=== PATIENT | female | born 1945 | race Caucasian/White ===

== ENCOUNTER 2019-11-15 11:54 | Inpatient (IN) | payer OTHER ==
[2019-11-15 12:19] VITALS: BMI 23.6
--- NOTE | 2019-11-15 12:23 | PDOC ---
History of Present Illness - General Chief Complaint: Pain, Acute Stated Complaint: LT KNEE PAIN - History of Present Illness Initial Comments: 11/15/19 12:23 HPI: 74 y/o F with hx of CAD c/b [place] x5-6 s/p stents x4, COPD, HTN, HLD, OA s/p right knee replacement, and significant smoking history presenting with left knee pain. Pain has been present for 2 months and worsened after a fall. She has been to [facility] and had XRs performed and was told she had significant arthritis. Today she says the pain isnt changed but it feels worse. Knee pain is worse with ambulation and improved with tylenol and ice. Pain currently 9/10 but 5/10 after tylenol. She takes 325mg q3-4 hrs. Pain radiates distally and proximally. She also reports edema of her knee and distally which has worsened recently. She also reports that the knee pain radiates to her chest. Pain lasts about an hour and improves with tylenol. Pain occurs at rest and is worse with exertion. On further history, she reports this is her normal chest pain which she has been having for years and it is stable. It doesnt feel like her AL chest pain. Denies fever, chills, SOB, cough, abd pain, n/v, diaphoresis. PMHx: as noted above ROS: as noted SHx: significant tobacco use 1.5ppd; no alcohol use; no rec drugs Allergies: NKDA ROS: GENERAL/CONSTITUTIONAL: No fever or chills. HEAD, EYES, EARS, NOSE AND THROAT: No change in vision. No ear pain or discharge. No sore throat. CARDIOVASCULAR: +chest pain; no shortness of breath RESPIRATORY: No cough, wheezing, or hemoptysis. GASTROINTESTINAL: No nausea, vomiting, diarrhea or constipation. GENITOURINARY: No dysuria, frequency, or change in urination. MUSCULOSKELETAL: +L knee pain. SKIN: No rash NEUROLOGIC: No vertigo, loss of consciousness, or change in strength/sensation. ENDOCRINE: No increased thirst. No abnormal weight change HEMATOLOGIC/LYMPHATIC: No anemia, easy bleeding, or history of blood clots. ALLERGIC/IMMUNOLOGIC: No hives or skin allergy. PE: GENERAL: Awake, alert, and fully oriented, no acute distress HEAD: No signs of trauma, normocephalic, atraumatic EYES: EOMI, sclera anicteric, conjunctiva clear ENT: Auricles normal inspection, hearing grossly normal, nares patent, oropharynx clear without exudates. Moist mucosa NECK: Normal ROM, no lymphadenopathy LUNGS: No increased work of breathing, symmetrical chest rise, clear to auscultation bilaterally, no wheezes, crackles or rhonchi HEART: Regular rate and rhythm, normal S1 and S2, systolic ejection murmur, peripheral pulses 2+ and equal bilaterally. ABDOMEN: Soft, nondistended, nontender, normoactive bowel sounds. No guarding, no rebound. No masses. No CVAT MUSCULOSKELETAL: LLE with lateral knee effusion and distal 2+ pitting edema, pain on active and passive ROM, no laxity on posterior/anterior drawer test, n laxity on varus or valgus motion NEUROLOGICAL: Cranial nerves II through XII grossly intact. Normal speech, normal gait, no focal sensorimotor deficits SKIN: Warm, Dry, normal turgor, no rashes or lesions noted Past History - Past Medical History Allergies/Adverse Reactions: Allergies Allergy/AdvReac Type Severity Reaction Status Date / Time No Known Allergies Allergy Verified 11/15/19 12:19 Home Medications: Ambulatory Orders Aspirin [ASA -] 81 mg PO DAILY 03/30/14 Cardiac Disorders: Yes COPD: Yes HTN: Yes - Surgical History Cardiac Surgery: Yes (stents x 4) - Psycho Social/Smoking Cessation Hx Smoking Status: Yes Smoking History: Never smoked Years of Tobacco Use: 40 Have you smoked in the past 12 months: No Number of Cigarettes Smoked Daily: 80 Information on smoking cessation initiated: No 'Breaking Loose' booklet given: 01/06/14 Hx Alcohol Use: No Drug/Substance Use Hx: No Substance Use Type: None Hx Substance Use Treatment: No *Physical Exam - Vital Signs Last Vital Signs Temp Pulse Resp BP Pulse Ox 96.8 F L 83 16 150/77 100 11/15/19 11:54 11/15/19 11:54 11/15/19 11:54 11/15/19 11:54 11/15/19 11:54 Heart Score/ECG Review - History History: Moderately suspicious - Electrocardiogram EKG: Non specific repolarization disturbance - Age Age: >/= 65 - Risk Factors Risk Factors Heart Score: Yes Hx Hypertension, Yes Hx Diabetes, Yes Smoking History Based on the list above the patient has:: >/=3 risk factors or Hx atherosclerotic disease - Troponin Troponin: </= normal limit - Score Heart Score - Total: 6 ED Treatment Course - LABORATORY CBC & Chemistry Diagram: 11/15/19 14:15 11/15/19 14:15 Medical Decision Making - Medical Decision Making 11/15/19 14:13 74 y/o F with hx of CAD c/b [place] x5-6 s/p stents x4, COPD, HTN, HLD, OA s/p right knee replacement, and significant smoking history presenting with left knee pain and swelling worse on ambulation; also reporting chest pain. VSS, AF. PE with decreased ROM of LLE with edema and ttp. DDx includes OA, DVT, ACS, PNA, CHF exacerbation. Heart score 5/6 -cbc, cmp, cardiac profile, Mg, ekg, cxr, Duplex -ASA 11/15/19 16:47 US: left popliteal fossa cyst; no dvt BNP elevated, negative trops cxr: mild atelectasis in LLL; no acute process ekg: nsr, nl intervals, possible <1mm MO and T wave inversions in lateral leads however baseline is poor given heart score, will admit admitted to tele under dr wilson Discharge - Discharge Information Problems reviewed: Yes Clinical Impression/Diagnosis: Chest pain Qualifiers: Chest pain type: unspecified Qualified Code(s): R07.9 - Chest pain, unspecified Condition: Fair - Follow up/Referral - Patient Discharge Instructions - Post Discharge Activity
[2019-11-15] MEDS ORDERED: ASPIRIN 81 MG CHEWABLE TABLETS PO ONE (13:37)
[2019-11-15] MEDS ORDERED: ASPIRIN 81 MG CHEWABLE TABLETS ONE (14:22)
[2019-11-15 14:37] LABS: BASO % 0.8 % (0-2.0); EOS % 1.1 % (0-4.5); HEMATOCRIT 39.4 % (32.4-45.2); HEMOGLOBIN 13.2 GM/dL (10.7-15.3); LYMPH % 29.4 % (8-40); MCH 33.5 pg (25.7-33.7); MCHC 33.5 g/dl (32.0-36.0); MEAN CELL VOLUME 99.9 fl (80-96); MONO % 6.8 % (3.8-10.2); NEUT % 61.9 % (42.8-82.8); PLATELET COUNT 370 K/MM3 (134-434); RBC 3.94 M/mm3 (3.60-5.2); RDW 14.4 % (11.6-15.6); WHITE BLOOD COUNT 7.2 K/mm3 (4.0-10.0)
[2019-11-15 14:54] LABS: INR 0.89 (0.83-1.09); PROTHROMBIN TIME (PATIENT) 10.5 SEC (9.7-13.0)
[2019-11-15 14:57] LABS: ACTIVATED PTT 36.8 SECONDS (25.2-36.5)
[2019-11-15 14:59] LABS: ALBUMIN 3.8 g/dl (3.4-5.0); BILIRUBIN,TOTAL 0.5 mg/dL (0.2-1); BLOOD UREA NITROGEN 24.5 mg/dL (7-18); CALCIUM 9.6 mg/dL (8.5-10.1); CREATININE 1.2 mg/dL (0.55-1.3); POTASSIUM 4.9 mmol/L (3.5-5.1); TOT PROT 7.4 g/dl (6.4-8.2)
--- NOTE | 2019-11-15 15:05 | PDOC ---
Attending Attestation - Resident Resident Name: Ameya,Vikas - ED Attending Attestation I have performed the following: I have examined & evaluated the patient, The case was reviewed & discussed with the resident, I agree w/resident's findings & plan - HPI HPI: 11/15/19 15:01 74-year-old female with history of hypertension, CAD, severe left knee arthritis brought in by daughter for further evaluation of chronic left knee pain but worsening left chest pain. Patient reports fall few weeks ago, has been managed at [facility] ED and clinic over the last few weeks, treated with Tylenol but no orthopedics referral. X-ray reportedly confirmed severe arthritis, no additional imaging. Patient now presenting with request for a second opinion regarding her left knee pain, but more acutely has had acute on chronic left chest pain with exertion over the last 10 days. Patient states that when she tries to walk, she developed chest pressure without difficulty breathing, no lightheadedness or syncope. Chest pressure resolves with rest, reports not having cardiology follow-up recently, denies or does not recall last stress test or catheterization. Chest pain-free at this moment. - Physicial Exam PE: 11/15/19 15:02 Vitals as noted within normal limits Seated comfortably in wheelchair speaking full sentences Heart is regular with 2 out of 6 systolic ejection murmur, coarse breath sounds bilaterally in all lung morel Abdomen benign Left knee with small to moderate left knee effusion, no focal bony tenderness or deformity, limited range of motion secondary to pain, no warmth or erythema. Neurovascular intact. - Medical Decision Making 11/15/19 15:03 74-year-old female with worsening chronic left knee pain likely secondary to severe arthritis, no evidence of acute infectious process or vascular process. Patient also with known CAD and reportedly worsening exertional chest pain over the last 2 weeks, noncompliant with meds and lost to cardiology follow-up. Labs, EKG Chest x-ray, left knee x-ray Will need admission given elevated heart score and exertional chest pain Heart Score/ECG Review - History History: Moderately suspicious - Electrocardiogram EKG: Normal - Age Age: >/= 65 - Risk Factors Based on the list above the patient has:: >/=3 risk factors or Hx atherosclerotic disease - Troponin Troponin: </= normal limit - Score Heart Score - Total: 5 #1 ECG reviewed & interpreted by me at: 12:18 General ECG Interpretation: Sinus Rhythm, Normal Rate (84), Normal Intervals ( qtc 446), No acute ischemic changes (TWI V4-6) Compared to previous ECG there are: Changes noted (TWI new c/w last EKG from 2013)
--- NOTE | 2019-11-15 15:45 | EKG ---
Test Reason : Blood Pressure : / mmHG Vent. Rate : 084 BPM Atrial Rate : 084 BPM P-R Int : 136 ms QRS Dur : 080 ms QT Int : 378 ms P-R-T Axes : 051 046 011 degrees QTc Int : 446 ms NORMAL SINUS RHYTHM CANNOT RULE OUT ANTERIOR INFARCT , AGE UNDETERMINED ABNORMAL ECG WHEN COMPARED WITH ECG OF 30-MAR-2014 08:30, T WAVE AMPLITUDE HAS DECREASED IN ANTERIOR LEADS Confirmed by MD Andrew, Efren ([id number]) on 11/15/2019 3:45:20 PM Referred By: Confirmed By:Efren Morales MD
--- NOTE | 2019-11-15 16:00 | HP ---
CHIEF COMPLAINT: left knee and chest pain PCP: HISTORY OF PRESENT ILLNESS: Patient is a 74 year old female with history of hypertension, hyperlipidemia, coronary artery disease s/p [place] and 4 coronary stents (last one in 2010), COPD ( not on home oxygen) presents with complaint of left knee pain. Patient admits fall three weeks ago where she fell on her knee and backside. Patient states she has been seen at [facility] and was told her pain was due to arthritis, however was not sent with follow up or any medication. She admits chest pain that radiates from her knee, however ocaassionally has indipendent chest pain that is non radiating, and occurs with exertion as well as when resting. The pain is ocassionalloy associated with shortness of breath. Currently, patient denies any pain, shortness of breath, palpitations, abdominal pain, nausea, vomiting. ER course was notable for: (1) EKG reveals normal sinus rhythm at 84BPM. Initial troponin 0.02 (2) Duplex US left lower extremity (3) Recent Travel: denies PAST MEDICAL HISTORY: hypertension, hyperlipidemia, coronary artery disease s/ p [place], COPD PAST SURGICAL HISTORY: Coronary stenting, right knee replacement, right sided nephrectomy Family history: Patient unable to endorse history of cancer, cardiac disease, or diabetes in her family. Social History: Patient lives in apartment with her daughter. Formerly worked in animal intermediate. Patient is able to ambulate no more than one block with walker due to knee pain. Smoking: smokes 1.5PPD for the past 50 years Alcohol: denies alcohol consumption Drugs: denies illicit drug use Allergies No Known Allergies Allergy (Verified 11/15/19 12:19) HOME MEDICATIONS: Home Medications Medication Instructions Recorded Aspirin [ASA -] 81 mg PO DAILY 03/30/14 REVIEW OF SYSTEMS CONSTITUTIONAL: Absent: fever, chills, diaphoresis, generalized weakness, malaise, loss of appetite, weight change HEENT: Absent: rhinorrhea, nasal congestion, throat pain, throat swelling, difficulty swallowing, mouth swelling, ear pain, eye pain, visual changes CARDIOVASCULAR: Admits: chest pain. Absent: syncope, palpitations, irregular heart rate, lightheadedness, peripheral edema RESPIRATORY: Absent: cough, shortness of breath, dyspnea with exertion, orthopnea, wheezing, stridor, hemoptysis GASTROINTESTINAL: Absent: abdominal pain, abdominal distension, nausea, vomiting, diarrhea, constipation, melena, hematochezia GENITOURINARY: Absent: dysuria, frequency, urgency, hesitancy, hematuria, flank pain, genital pain MUSCULOSKELETAL: Admits: left knee pain. Absent: myalgia, back pain, neck pain SKIN: Absent: rash, itching, pallor HEMATOLOGIC/IMMUNOLOGIC: Absent: easy bleeding, easy bruising, lymphadenopathy, frequent infections ENDOCRINE: Absent: unexplained weight gain, unexplained weight loss, heat intolerance, cold intolerance NEUROLOGIC: Absent: headache, focal weakness or paresthesias, dizziness, unsteady gait, seizure, mental status changes, bladder or bowel incontinence PSYCHIATRIC: Absent: anxiety, depression, suicidal or homicidal ideation, hallucinations. PHYSICAL EXAMINATION Vital Signs - 24 hr 11/15/19 11:54 Temperature 96.8 F L Pulse Rate 83 Respiratory 16 Rate Blood Pressure 150/77 O2 Sat by Pulse 100 Oximetry (%) GENERAL: The patient is awake, alert, and fully oriented, in no acute distress. HEAD: Normocephalic, atraumatic. EYES: PERRL, extraocular movements intact, sclera anicteric, conjunctiva clear. ENT: Oropharynx clear, without erythema or exudates. Moist mucous membranes. NECK: Trachea midline, full range of motion. Supple without lymphadenopathy. LUNGS: Breath sounds equal, clear to auscultation bilaterally, no wheezes, no crackles. No accessory muscle use. HEART: Regular rate and rhythm, S1, S2 without murmur, rub or gallop. ABDOMEN: Soft, nondistended, nontender to light and deep palpation x4 quadrants , no rebound tenderness, no guarding. Normoactive bowel sounds x4 quadrants. no hepatosplenomegaly, no masses. EXTREMITIES: 2+ radial, dorsalis pedis pulses bilaterally. Left knee and lower extremit mildly edematous compared to right side. Unable to guage passive or active ROM as patient unable to bend her knee due to pain. Negative knee effusion, warmth, discharge. NEUROLOGICAL: Cranial nerves II through XII grossly intact. Normal speech. No gross focal deficits. PSYCH: Normal mood, normal affect upon my encounter. SKIN: Warm, dry. Laboratory Results - last 24 hr 11/15/19 11/15/19 11/15/19 14:15 14:15 14:15 WBC 7.2 RBC 3.94 Hgb 13.2 Hct 39.4 MCV 99.9 H MCH 33.5 MCHC 33.5 RDW 14.4 Plt Count 370 D MPV 8.0 D Absolute Neuts (auto) 4.4 Neutrophils % 61.9 Lymphocytes % 29.4 D Monocytes % 6.8 Eosinophils % 1.1 Basophils % 0.8 Nucleated RBC % 0 PT with INR 10.50 INR 0.89 PTT (Actin FS) 36.8 H Sodium Potassium Chloride Carbon Dioxide Anion Gap BUN Creatinine Est GFR (CKD-EPI)AfAm Est GFR (CKD-EPI)NonAf Random Glucose Calcium Magnesium Total Bilirubin AST ALT Alkaline Phosphatase Creatine Kinase 131 Troponin I < 0.02 Total Protein Albumin 11/15/19 11/15/19 14:15 14:15 WBC RBC Hgb Hct MCV MCH MCHC RDW Plt Count MPV Absolute Neuts (auto) Neutrophils % Lymphocytes % Monocytes % Eosinophils % Basophils % Nucleated RBC % PT with INR INR PTT (Actin FS) Sodium 134 L Potassium 4.9 Chloride 102 Carbon Dioxide 26 Anion Gap 6 L BUN 24.5 H Creatinine 1.2 Est GFR (CKD-EPI)AfAm 52.29 Est GFR (CKD-EPI)NonAf 45.11 Random Glucose 86 Calcium 9.6 Magnesium 2.5 H Total Bilirubin 0.5 AST 23 ALT 24 Alkaline Phosphatase 106 Creatine Kinase Troponin I Total Protein 7.4 Albumin 3.8 ASSESSMENT/PLAN: Patient is a 74 year old female with history of hypertension, hyperlipidemia, coronary artery disease s/p [place] and 4 coronary stents (last one in 2010), COPD ( not on home oxygen) presents with complaint of left knee pain. Atypical chest pain -Patient provides inconsistent story of chest pain that occasionally radiates from her knee. -EKG reveals normal sinus rhythm at 84BPM. Initial troponin 0.02. Will trend troponin. -Cardiac ECHO -F/U BNP -Telemetry monitoring -Chest pain less likely cardiac in etiology, however will consider cardiology evaluation, pending cardiac workup Left knee pain -Will obtain knee radiograph -Duplex left lower extremity to evaluate for DVT -Orthopedic surgery consult (Dr. Trimble) -Pain control with Acetaminophen 650mg PO Q6H PRN Coronary artery disease -Continue home Aspirin 81mg PO daily -Will need to reconcile medications; ?statin Hypertension -Patient states she does not take home antihypertensives. Will need to reconcile her medications (pharmacy currently closed) -Monitor vital signs closely. COPD -Currently not in exacerbation. -DuoNebs Q6 hours PRN for shortness of breath FEN -No IV fluids indicated -Follow BMP -Sodium controlled diet Prophylaxis -Heparin 5000units subq TID Disposition -Telemetry observation. Visit type - Emergency Visit Emergency Visit: Yes ED Registration Date: 11/15/19 Care time: The patient presented to the Emergency Department on the above date and was hospitalized for further evaluation of their emergent condition. - New Patient This patient is new to me today: Yes Date on this admission: 11/15/19 - Critical Care Critical Care patient: No ATTENDING PHYSICIAN STATEMENT I saw and evaluated the patient. I reviewed the resident's note and discussed the case with the resident. I agree with the resident's findings and plan as documented. SUBJECTIVE: OBJECTIVE: ASSESSMENT AND PLAN:
[2019-11-15 16:05] LABS: N-TERMINAL BNP 523.4 pg/ml (5-125)
--- NOTE | 2019-11-15 17:10 | PN ---
Teaching Attending Note Name of Resident: Conrad Mccray ATTENDING PHYSICIAN STATEMENT I saw and evaluated the patient. I reviewed the resident's note and discussed the case with the resident. I agree with the resident's findings and plan as documented. SUBJECTIVE: Patient is a 74 year old female with PMHx of HTN, HLD, CAD, s/p [place] with 4 stents (last one in 2010), COPD (not on home oxygen) presents with complaint of left knee pain. OBJECTIVE: Vital Signs Temperature 97.7 F 11/15/19 16:57 Pulse Rate 77 11/15/19 16:57 Respiratory Rate 16 11/15/19 16:57 Blood Pressure 116/63 11/15/19 16:57 O2 Sat by Pulse Oximetry (%) 97 11/15/19 16:57 GENERAL: The patient is awake, alert, and fully oriented, in no acute distress. HEAD: Normal with no signs of trauma. EYES: PERRL, extraocular movements intact, sclera anicteric, conjunctiva clear. ENT: Ears normal, oropharynx clear without exudates, moist mucous membranes. NECK: Trachea midline, full range of motion, supple. LUNGS: Breath sounds equal, clear to auscultation bilaterally, no wheezes, no crackles, no accessory muscle use. HEART: Regular rate and rhythm, S1, S2 without murmur, rub or gallop. ABDOMEN: Soft, nontender, nondistended, normoactive bowel sounds, no guarding, no rebound, no hepatosplenomegaly, no masses. EXTREMITIES: 2+ pulses, warm, well-perfused, edema of left ankle, unable to extend left knee. NEUROLOGICAL: Cranial nerves II through XII grossly intact. Normal speech, gait not observed. PSYCH: Normal mood, normal affect. SKIN: Warm, dry, normal turgor, no rashes or lesions noted CBCD WBC 7.2 K/mm3 (4.0-10.0) 11/15/19 14:15 RBC 3.94 M/mm3 (3.60-5.2) 11/15/19 14:15 Hgb 13.2 GM/dL (10.7-15.3) 11/15/19 14:15 Hct 39.4 % (32.4-45.2) 11/15/19 14:15 MCV 99.9 fl (80-96) H 11/15/19 14:15 MCHC 33.5 g/dl (32.0-36.0) 11/15/19 14:15 RDW 14.4 % (11.6-15.6) 11/15/19 14:15 Plt Count 370 K/MM3 (134-434) D 11/15/19 14:15 MPV 8.0 fl (7.5-11.1) D 11/15/19 14:15 CMP Sodium 134 mmol/L (136-145) L 11/15/19 14:15 Potassium 4.9 mmol/L (3.5-5.1) 11/15/19 14:15 Chloride 102 mmol/L (98-107) 11/15/19 14:15 Carbon Dioxide 26 mmol/L (21-32) 11/15/19 14:15 Anion Gap 6 MMOL/L (8-16) L 11/15/19 14:15 BUN 24.5 mg/dL (7-18) H 11/15/19 14:15 Creatinine 1.2 mg/dL (0.55-1.3) 11/15/19 14:15 Random Glucose 86 mg/dL (74-106) 11/15/19 14:15 Calcium 9.6 mg/dL (8.5-10.1) 11/15/19 14:15 Total Bilirubin 0.5 mg/dL (0.2-1) 11/15/19 14:15 AST 23 U/L (15-37) 11/15/19 14:15 ALT 24 U/L (13-61) 11/15/19 14:15 Alkaline Phosphatase 106 U/L (45-117) 11/15/19 14:15 Total Protein 7.4 g/dl (6.4-8.2) 11/15/19 14:15 Albumin 3.8 g/dl (3.4-5.0) 11/15/19 14:15 CARDIAC ENZYMES Creatine Kinase 131 U/L (26-192) 11/15/19 14:15 Troponin I < 0.02 ng/ml (0.00-0.05) 11/15/19 14:15 ASSESSMENT AND PLAN: Patient is a 74 year old female with history of hypertension, hyperlipidemia, coronary artery disease s/p [place] with 4 stents and 4 coronary stents (last one in 2011), COPD (not on home oxygen) presents with complaint of left knee pain. #Atypical chest pain with hx of CAD, continue home Aspirin 81mg PO daily, continue statin #Left knee pain; xray of the knee, Duplex to r/o LEs DVT, Orthopedic consult ( Dr. Trimble), follow xray of the knee # HTN : Will need to reconcile her medications (pharmacy currently closed) # Acute COPD: DuoNebs DVT Px: Heparin 5000units follow Ct of the back follow trops follow xray of the hip and the knee obs
[2019-11-15] MEDS: HEPARIN NA (PORCINE) 5,000 UNITS/ML 1ML VIAL SQ SCH (22:30)
[2019-11-16] MEDS: ACETAMINOPHEN 325 MG TABLET (FP) PO PRN ×2 (00:06→09:14)
[2019-11-16] MEDS: HEPARIN NA (PORCINE) 5,000 UNITS/ML 1ML VIAL SQ SCH ×4 (04:27→22:41)
[2019-11-16 07:10] LABS: HEMOGLOBIN 12.2 GM/dL (10.7-15.3); MCH 33.5 pg (25.7-33.7); MCHC 33.9 g/dl (32.0-36.0); MEAN CELL VOLUME 98.9 fl (80-96); MEAN PLT VOLUME 8.3 fl (7.5-11.1); PLATELET COUNT 341 K/MM3 (134-434); RBC 3.64 M/mm3 (3.60-5.2); RDW 14.3 % (11.6-15.6); WHITE BLOOD COUNT 5.4 K/mm3 (4.0-10.0)
[2019-11-16 07:33] LABS: ALBUMIN 3.4 g/dl (3.4-5.0); ALK PHOS 99 U/L (45-117); ANION GAP 8 MMOL/L (8-16); BILIRUBIN,TOTAL 0.7 mg/dL (0.2-1); BLOOD UREA NITROGEN 24.3 mg/dL (7-18); CALCIUM 9.4 mg/dL (8.5-10.1); CHLORIDE 103 mmol/L (98-107); CO2 25 mmol/L (21-32); CREATININE 1.1 mg/dL (0.55-1.3); GLUCOSE,RANDOM 82 mg/dL (74-106); MAGNESIUM 2.4 mg/dL (1.8-2.4); POTASSIUM 4.5 mmol/L (3.5-5.1); SGOT/AST 21 U/L (15-37); SGPT/ALT 21 U/L (13-61); SODIUM 136 mmol/L (136-145); TOT PROT 6.8 g/dl (6.4-8.2)
[2019-11-16] MEDS ORDERED: ASPIRIN 81 MG CHEWABLE TABLETS PO SCH (10:00)
[2019-11-16] MEDS ORDERED: methylPREDNISolone ACET (DEPO) 80 MG/1 ML VIAL IAR ONE (10:48)
--- NOTE | 2019-11-16 10:48 | CONSULT ---
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
--- NOTE | 2019-11-16 17:18 | PN ---
Progress Note (short form) - Note Progress Note: Subjective: pain in L knee. no back pain. limited movement in L leg due to knee and ankle pain . no abd pain or diarrhea . NO Cp or SOB. chest pain that happened 2 days ago, radiated from her L knee to her retrosternal area and under her L chest. happened at rest. Objective: Vital Signs: Last Vital Signs Temp Pulse Resp BP Pulse Ox 98.2 F 96 H 20 114/58 L 94 L 11/16/19 14:00 11/16/19 14:00 11/16/19 15:00 11/16/19 14:00 11/16/19 15:00 Laboratory Results - last 24 hr 11/15/19 11/16/19 11/16/19 21:00 06:00 06:00 WBC 5.4 RBC 3.64 Hgb 12.2 Hct 36.0 MCV 98.9 H MCH 33.5 MCHC 33.9 RDW 14.3 Plt Count 341 MPV 8.3 Sodium 136 Potassium 4.5 Chloride 103 Carbon Dioxide 25 Anion Gap 8 BUN 24.3 H Creatinine 1.1 Est GFR (CKD-EPI)AfAm 58.09 Est GFR (CKD-EPI)NonAf 50.12 Random Glucose 82 Calcium 9.4 Phosphorus 4.0 Magnesium 2.4 Total Bilirubin 0.7 AST 21 ALT 21 Alkaline Phosphatase 99 Creatine Kinase 124 Troponin I < 0.02 Total Protein 6.8 Albumin 3.4 Physical Exam: NAD CV: RRR, 3/6 Sm at base and apex. Lungs: CTAB Abd: soft, NT, ND , NL BS Ext : No edema or erythema. contracted L knee. tenderness to L knee and to L ankle. possible L suprapatellr bursa effusion Neuro of LE : LLE: hip flexion 4/5, knee flexion and extension 4/5,( all limited by pain) . decline moving L ankle due to pain. RLE: 5/5 Hip flexion . 5/5 knee lexion and extension, and ankle dorsiflexion and plantar flexion . decreased sensation over LLE compared to R. kne jerk 2+ on R. could not perform due to pain on L Imaging: CT of abd , L spine, US of LLE, Hips and Knee xrays reviewed. Assessment/Plan: 74 y/o lady with h/o hypertension, hyperlipidemia, CAD, s/p [place], s/p stents, COPD, and OA, who presented with CP and L knee pain. 1- CP: atypical . did not recur. EKG with J point elevation in anterior leads. trop neg x 2 out pt f/u - cont ASA - tele with no events. dc tele . transfer to Med Surg 2- L knee pain , with flexion contraction of Knee and Ankle - xrays reviewed. limited movement of L LE due to pain. - for steroid injection tomorrow 3- Abnormal stomach on CT scan. lack of po contrast limits evaluation . No abd pain and no N/V. - will get GI series 4- CT scan finding with L3-4 disk bulge . no urinary or fecal incontinence or retention . weakness in LLE is likely due to pain in knee and ankle. - she will need out pt MRI as she has sensation deficit in LLE - she was made aware of this 5- Absent R kidney on CT scan: will ask patient about h/o nephrectomy DVT PX : heparin Sq. PT pending . will confirm meds tomorrow when pharmacy is open Visit type - Emergency Visit Emergency Visit: Yes ED Registration Date: 11/15/19 Care time: The patient presented to the Emergency Department on the above date and was hospitalized for further evaluation of their emergent condition. - New Patient This patient is new to me today: Yes Date on this admission: 11/16/19 - Critical Care Critical Care patient: No
[2019-11-16] MEDS ORDERED: PT OWN MED DRAWER 7, Y5N ONE (17:37)
[2019-11-17] MEDS: HEPARIN NA (PORCINE) 5,000 UNITS/ML 1ML VIAL SQ SCH ×3 (06:11→21:09)
[2019-11-17] MEDS ORDERED: methylPREDNISolone ACET (DEPO) 80 MG/1 ML VIAL IAR ONE (10:00)
[2019-11-17] MEDS: ACETAMINOPHEN 325 MG TABLET (FP) PO PRN (13:27)
[2019-11-17] MEDS ORDERED: PT OWN MED DRAWER 7, Y5N ONE (13:59)
[2019-11-17] MEDS ORDERED: LIDOCAINE HCL 1%, 10 MG/ML (50 mL VIAL) SQ ONE (14:02)
--- NOTE | 2019-11-17 14:54 | PN ---
Progress Note (short form) - Note Progress Note: i administered a right knee Lido/Depo injection under sterile conditions. Will follow
[2019-11-17] MEDS: ASPIRIN 81 MG CHEWABLE TABLETS PO SCH (15:12)
--- NOTE | 2019-11-17 18:01 | PN ---
Physical Exam: SUBJECTIVE: Patient seen and examined CLAYTON Endorses Left knee pain, radiates to chest. Has trouble bending knee OBJECTIVE: Vital Signs Period Temp Pulse Resp BP Sys/Stern Pulse Ox Last 24 Hr 97.5 F-98.4 F 73-102 17-20 125-143/52-65 96-96 GENERAL: The patient is awake, alert, and fully oriented, in no acute distress. HEAD: NC/AT. No temporal wasting EYES: sclera anicteric, conjunctiva clear. ENT: Ears normal, nares patent, oropharynx clear without exudates, moist mucous membranes. NECK: Trachea midline, full range of motion, supple. No JVD LUNGS: Breath sounds equal, clear to auscultation bilaterally, no wheezes, no crackles, no accessory muscle use. HEART: Regular rate and rhythm, S1, S2 without murmur, rub or gallop. No TTP of anterior chest wall ABDOMEN: Soft, nontender, nondistended, normoactive bowel sounds, no guarding, no rebound. EXTREMITIES: 2+ pulses, warm, well-perfused, no edema. LLE w/ knee swelling, mild ballotable fluid lateral knee. Left knee w/o erythema or warmth. Right knee with surgical scar. Painful AROM of Left knee in flexion/extension NEUROLOGICAL: Normal speech, gait not observed. Laboratory Results - last 24 hr 11/16/19 06:00 Sodium 136 Potassium 4.5 Chloride 103 Carbon Dioxide 25 Anion Gap 8 BUN 24.3 H Creatinine 1.1 Est GFR (CKD-EPI)AfAm 58.09 Est GFR (CKD-EPI)NonAf 50.12 Random Glucose 82 Calcium 9.4 Phosphorus 4.0 Magnesium 2.4 Total Bilirubin 0.7 AST 21 ALT 21 Alkaline Phosphatase 99 Creatine Kinase 165 Creatine Kinase Index 3.6 CK-MB (CK-2) 6.1 H Troponin I < 0.02 Total Protein 6.8 Albumin 3.4 Active Medications Generic Name Dose Route Start Last Admin Trade Name Freq PRN Reason Stop Dose Admin Acetaminophen 650 mg 11/16/19 16:11 11/17/19 13:27 Tylenol - PO 650 mg Q6H PRN Administration PAIN LEVEL 1-5 Aspirin 81 mg 11/17/19 10:00 11/17/19 15:12 Asa - PO 81 mg DAILY HERMILO Administration Heparin Sodium (Porcine) 5,000 unit 11/16/19 16:30 11/17/19 15:11 Heparin - SQ 5,000 unit TID HERMILO Administration Ibuprofen 400 mg 11/17/19 08:11 Motrin - PO Q6H PRN PAIN LEVEL 6-10 ASSESSMENT/PLAN: 74 year old female with history of hypertension, hyperlipidemia, coronary artery disease s/p [place] and 4 coronary stents (last one in 2010), COPD (not on home oxygen) presents with complaint of left knee pain. Admitted for ACS r/o. Troponin were neg x3. No notable telemetry events. # Atypical chest pain --likely 2/2 MSK pain > CXR: scoliolsis > troponins neg x3 > BNP 523 - Telemetry monitoring --uneventful, dc'd #Left knee pain > LLE duplex(11/15/19): neg DVT, popliteal fossa cyst 2.5 x1.4 x1cm > XRay Left knee: no acute path -Orthopedic surgery consult (Dr. Trimble): - rec NSAID - s/p depomedrol+lido injection(11/17/19) -Pain mgmt: Acetaminophen 650mg PO, ibuprofen #chronic lower back pain > CT L-spine: L3-L4 disc buldging, mild spinal stenosis - MRI back as outpt # abnormal stomach findings on CT A/P > CT A/P: stomach appears abn vs retained food; hiatal hernia, granulomata vs calcifications of spleen, splenic artery aneursym 1.5cm, Left kidney parapelvic cysts, Right kidney is surgically absent - Upper GI series to evaluate stomach #Coronary artery disease -Continue home Aspirin 81mg PO daily -cw statin, ACEI #Hypertension - cw lisinopril, imdur COPD -Currently not in exacerbation. -DuoNebs Q6 hours PRN for shortness of breath #FEN -Sodium controlled diet -NPO at [place] #Prophylaxis -Heparin 5000units subq TID #Disposition - possible STR vs SNF vs home-VNS Visit type - Emergency Visit Emergency Visit: No - New Patient This patient is new to me today: No - Critical Care Critical Care patient: No ATTENDING PHYSICIAN STATEMENT I saw and evaluated the patient. I reviewed the resident's note and discussed the case with the resident. I agree with the resident's findings and plan as documented. SUBJECTIVE: OBJECTIVE: ASSESSMENT AND PLAN:
--- NOTE | 2019-11-17 18:04 | PN ---
Teaching Attending Note Name of Resident: Tae Uriostegui ATTENDING PHYSICIAN STATEMENT I saw and evaluated the patient. I reviewed the resident's note and discussed the case with the resident. I agree with the resident's findings and plan as documented. SUBJECTIVE: pain in L knee. no back pain, SOB , or fever . still has pain that radiates form her L knee to her chest OBJECTIVE: NAD CV: RRR, 3/6 Sm at base and apex. Lungs: CTAB Ext : No edema or erythema. contracted L knee. tenderness to L knee and to L ankle. possible L suprapatellr effusion Assessment/Plan: 74 y/o lady with h/o hypertension, hyperlipidemia,R nephrectomy ( unlcear reason ) CAD, s/p [place], s/p stents, COPD, and OA, who presented with CP and L knee pain. 1- CP: atypical . - cont ASA - f/u for possible stress as outpt 2- L knee pain , with flexion contraction of Knee and Ankle - steroid injection today - PT 3- Abnormal stomach on CT scan. - Gi series was canceled as patient ate breakfast . will be done tomorrow 4- CT scan finding with L3-4 disk bulge. MRI as out pt 5- R nephrectomy. confirmed with patient DVT PX : heparin Sq. She needs rehab. She agrees. SW notified
[2019-11-18] MEDS: ACETAMINOPHEN 325 MG TABLET (FP) PO PRN (02:38)
[2019-11-18] MEDS: HEPARIN NA (PORCINE) 5,000 UNITS/ML 1ML VIAL SQ SCH ×3 (06:09→21:15)
[2019-11-18] MEDS ORDERED: PT OWN MED DRAWER 7, Y5N ONE ×2 (10:26→11:14)
[2019-11-18] MEDS: BUDESONIDE/FORMETEROL FUMARATE 160/4.5 mcg INHALER IH SCH ×2 (10:37→21:15)
[2019-11-18] MEDS: ASPIRIN 81 MG CHEWABLE TABLETS PO SCH (10:37)
[2019-11-18] MEDS: LISINOPRIL 5 MG TABLET (FP) PO SCH (10:37)
--- NOTE | 2019-11-18 12:04 | ECHO ---
Name: LYNETTE MARTINO Exam:Adult Echocardiogram Study Date: 11/18/2019 10:10 AM Age: 74 yrs Reason For Study: Chest pain Height: 64 in Weight: 138 lb BSA: 1.7 m2 MMode/2D Measurements & Calculations IVSd: 1.00 cm Ao root diam: 2.6 cm LVIDd: 4.4 cm LA dimension: 2.8 cm LVIDs: 3.0 cm LVPWd: 0.88 cm EDV(Teich): 89.9 ml LVOT diam: 2.0 cm ESV(Teich): 34.6 ml LAV (MOD-bp): 39.6 ml Doppler Measurements & Calculations MV E max viktor: 77.6 cm/sec Ao V2 max: 153.4 cm/sec MV A max viktor: 93.6 cm/sec Ao max P.4 mmHg MV E/A: 0.83 AI P1/2t: 480.2 msec MV dec time: 0.23 sec HOOD(V,D): 2.0 cm2 AI max viktor: 391.8 cm/sec LV V1 max P.8 mmHg AI max P.4 mmHg LV V1 max: 97.0 cm/sec AI dec slope: 239.0 cm/sec2 PA V2 max: 92.3 cm/sec Med Peak E' Viktor: 6.4 cm/sec PA max P.4 mmHg Med E/e': 12.1 Lat Peak E' Viktor: 6.7 cm/sec Lat E/e': 11.5 Left Ventricle Left ventricular systolic function is normal. Ejection Fraction = 50-55%. The transmitral spectral Do ppler flow pattern is suggestive of impaired LV relaxation. Right Ventricle The right ventricle is normal in size and function. Atria Normal left and right atrial size and function. Mitral Valve There is mild mitral annular calcification. There is mild mitral valve thickening. There is no mitral valve stenosis. There is trace mitral regurgitation. Tricuspid Valve The tricuspid valve is normal in structure and function. There is mild tricuspid regurgitation. There was insufficient TR detected to calculate RV systolic pressure. Aortic Valve Moderate focal calcification on the aortic valve. In the parasternal long axis view, small mobile echodensity seen on the left ventricular surface of t he aortic valve likely representing an artifact; cannot r/o small vegetation, clinical correlation required. No hemodynamically significant valvular aortic stenosis. Mild aortic regurgitation. Pulmonic Valve The pulmonic valve is not well seen, but is grossly normal. There is no pulmonic valvular stenosis. Great Vessels The aortic root is normal size. Pericardium/Pleura There is no pericardial effusion. Interpretation Summary Left ventricular systolic function is normal. Ejection Fraction = 50-55%. There is mild mitral annular calcification. There is mild mitral valve thickening. There is mild tricuspid regurgitation. Moderate focal calcification on the aortic valve. In the parasternal long axis view, small mobile echodensity seen on the left ventricular surface of t he aortic valve likely representing an artifact; cannot r/o small vegetation, clinical correlation required. Mild aortic regurgitation. MD John Dill 11/18/2019 12:04 PM
--- NOTE | 2019-11-18 15:55 | CON.CARD ---
Consult Consult Specialty:: Cardiology Referred by:: Hospitalist Medicine Reason for Consultation:: Abnormal echocardiogram - History of Present Illness Chief Complaint: Knee and chest pain History of Present Illness: Patient is a 74 year old female with PMHx of HTN, HLD, CAD, s/p LA with 4 stents (last one in 2010), COPD (not on home oxygen) presents with complaint of left knee pain with limited movement in L leg due to knee and ankle pain after slip and fall, unable to weight bear, received lidocaine/steroid injection with some relief afterwards. She reports pain that radiates form her L knee to her chest, denies dyspnea, near or true syncope, palpitations, orthopnea, PND or LE edema. - History Source History Provided By: Patient Limitations to Obtaining History: No Limitations - Past Medical History Cardio/Vascular: Yes: CAD, HTN, Hyperlipdemia ...: No - Past Surgical History Past Surgical History: Yes: Appendectomy - Alcohol/Substance Use Hx Alcohol Use: No - Smoking History Smoking history: Current every day smoker Have you smoked in the past 12 months: Yes Aproximately how many cigarettes per day: 20 - Social History Usual Living Arrangement: Alone ADL: Independent Home Medications - Allergies Allergies/Adverse Reactions: Allergies Allergy/AdvReac Type Severity Reaction Status Date / Time No Known Allergies Allergy Verified 11/15/19 12:19 - Home Medications Home Medications: Ambulatory Orders Aspirin [ASA -] 81 mg PO DAILY 03/30/14 Atorvastatin Ca [Lipitor] 40 mg PO DAILY 11/17/19 Budesonide/Formeterol Fumarate [SYMBICORT 160/4.5mcg -] 2 inh IH DAILY 11/17/19 Isosorbide Mononitrate [Imdur -] 60 mg PO DAILY 11/17/19 Lisinopril [Zestril] 2.5 mg PO DAILY 11/17/19 Review of Systems - Review of Systems Musculoskeletal: reports: Joint Pain (Left knee pain) Vital Signs: Vital Signs Temperature 98.5 F 11/18/19 13:00 Pulse Rate 80 11/18/19 13:00 Respiratory Rate 18 11/18/19 13:00 Blood Pressure 102/44 L 11/18/19 13:00 O2 Sat by Pulse Oximetry (%) 96 11/18/19 07:00 Constitutional: Yes: No Distress, Calm Neck: Yes: Supple Respiratory: Yes: Regular, CTA Bilaterally Gastrointestinal: Yes: Normal Bowel Sounds, Soft Cardiovascular: Yes: Regular Rate and Rhythm JVD: No Carotid Bruit: No Heart Sounds: Yes: S1, S2 Murmur: Yes: Systolic Murmur, Grade 1 Musculoskeletal: Yes: Joint Stiffness Edema: No - Other Data Labs, Other Data: CBC, BMP 11/16/19 06:00 11/16/19 06:00 INR, PTT INR 0.89 (0.83-1.09) 11/15/19 14:15 NSR @ [address]-T changes Ejection Fraction %: LVEF > or = 40 % Imaging - Results Chest X-ray: Report Reviewed (NAD) Problem List - Problems (1) Atypical chest pain Code(s): R07.89 - OTHER CHEST PAIN (2) Flexion contracture of left knee Code(s): M24.562 - CONTRACTURE, LEFT KNEE (3) History of coronary artery stent placement Code(s): Z95.5 - PRESENCE OF CORONARY ANGIOPLASTY IMPLANT AND GRAFT (4) Coronary artery disease Code(s): I25.10 - ATHSCL HEART DISEASE OF [place] CORONARY ARTERY W/O ANG PCTRS Qualifiers: Coronary Disease-Associated Artery/Lesion type: [place] artery [place] vs. transplanted heart: [place] heart Associated angina: without angina Qualified Code(s): I25.10 - Atherosclerotic heart disease of [place] coronary artery without angina pectoris (5) Hypertension Code(s): I10 - ESSENTIAL (PRIMARY) HYPERTENSION Qualifiers: Hypertension type: essential hypertension Qualified Code(s): I10 - Essential (primary) hypertension (6) Hyperlipidemia Code(s): E78.5 - HYPERLIPIDEMIA, UNSPECIFIED Qualifiers: Hyperlipidemia type: pure hypercholesterolemia Qualified Code(s): E78.00 - Pure hypercholesterolemia, unspecified; E78.0 - Pure hypercholesterolemia (7) COPD (chronic obstructive pulmonary disease) Code(s): J44.9 - CHRONIC OBSTRUCTIVE PULMONARY DISEASE, UNSPECIFIED Assessment/Plan 11/18/2019 Echo: Normal LV size and fxn LVEF 50-55%, mild TR, mod focal calcification on aortic valve. In parasternal long axis view, small mobile echodensity seen on left ventricular surface of aortic valve likely representing artifact, can't rule out small vegetation, clinical correlation recommended, mild AR 1. Atypical chest pain 2. CAD s/p LA s/p stents 3. 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 HTN 5. Hyperlipidemia 6. Right nephrectomy 7. COPD 8. Artifact on echo 9. Abnormal stomach on CT scan and normal UGI series P:1. Reviewed echo and agree with artifact nature, no clinical symptoms of endocarditis 2. Post steroid/lidocaine injection, judicious NSAIDs and PT for left knee discomfort 3. Continus ASA 81 qd, Lipitor 40 qd, Zestril 2.5 qd, ideally should be on beta alexis (Toprol XL 25 qd) as hemodynamics and COPD tolerates 4. Lexiscan Myoview to assess severity of CAD as outpatient, patient usually seeks care at [facility] 5. Thank you for consultative opportunity
--- NOTE | 2019-11-18 16:19 | PN ---
Physical Exam: SUBJECTIVE: Patient seen and examined C[place]TON Endorses improvement in Left knee after depomedrol injection yesterday. Pain was 2/10, today now 7/10 but overall improved from admission OBJECTIVE: Vital Signs Period Temp Pulse Resp BP Sys/Stern Pulse Ox Last 24 Hr 97.7 F-98.5 F 68-85 18-20 102-139/44-61 96-96 GENERAL: The patient is awake, alert, and fully oriented, in no acute distress. HEAD: NC/AT. No temporal wasting EYES: sclera anicteric, conjunctiva clear. ENT: Ears normal, nares patent, oropharynx clear without exudates, moist mucous membranes. NECK: Trachea midline, full range of motion, supple. No JVD LUNGS: Breath sounds equal, clear to auscultation bilaterally, no wheezes, no crackles, no accessory muscle use. HEART: Regular rate and rhythm, S1, S2 without murmur, rub or gallop. No TTP of anterior chest wall ABDOMEN: Soft, nontender, nondistended, normoactive bowel sounds, no guarding, no rebound. EXTREMITIES: 2+ pulses, warm, well-perfused, no edema. LLE w/ knee swelling, mild ballotable fluid lateral knee. Small punctate wound from steroid injection , wound at distal lateral patella. Left knee w/o erythema or warmth. Right knee with surgical scar. Painful AROM of Left knee in flexion/extension NEUROLOGICAL: Normal speech, gait not observed. Active Medications Generic Name Dose Route Start Last Admin Trade Name Freq PRN Reason Stop Dose Admin Acetaminophen 650 mg 11/16/19 16:11 11/18/19 02:38 Tylenol - PO 650 mg Q6H PRN Administration PAIN LEVEL 1-5 Aspirin 81 mg 11/17/19 10:00 11/18/19 10:37 Asa - PO 81 mg DAILY HERMILO Administration Atorvastatin Calcium 40 mg 11/18/19 22:00 Lipitor - PO HS HERMILO Budesonide/Formoterol Fumarate 2 puff 11/18/19 10:00 11/18/19 10:37 Symbicort 160/4.5mcg - IH 2 inh BID HERMILO Administration Heparin Sodium (Porcine) 5,000 unit 11/16/19 16:30 11/18/19 14:09 Heparin - SQ 5,000 unit TID HERMILO Administration Ibuprofen 400 mg 11/17/19 08:11 Motrin - PO Q6H PRN PAIN LEVEL 6-10 Lisinopril 2.5 mg 11/18/19 10:00 11/18/19 10:37 Prinivil PO 2.5 mg DAILY HERMILO Administration ASSESSMENT/PLAN: 74 year old female with history of hypertension, hyperlipidemia, coronary artery disease s/p [place] and 4 coronary stents (last one in 2010), COPD (not on home oxygen) presents with complaint of left knee pain. Admitted for ACS r/o. Troponin were neg x3. No notable telemetry events. Echo showing questionable aortic valve vegetations. Patient w/o fever, leukocytosis throughout admission. CT A/P showed questionable stomach wall thickening(vs retained food). XRay upper GI was normal. Patient's hospital admission. # Atypical chest pain --likely 2/2 MSK pain --resolved > CXR: scoliolsis > troponins neg x3 > BNP 523 > echo(11/18/19): LVEF 50-55%, moderate focal calcification on aortic valve, small mobile echodensity seen on Left ventricular surface of the aortic valve likely representing an artifact; cannot r/o small vegetations - Telemetry monitoring --uneventful, dc'd # incidental Echo findings(artifact vs vegetations) > echo: L ventric echodensities - Cardio([facility]) consult: --pending #Left knee pain --improving > LLE duplex(11/15/19): neg DVT, popliteal fossa cyst 2.5 x1.4 x1cm > XRay Left knee: no acute path -Orthopedic surgery consult (Dr. 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 -DuoNebs Q6 hours PRN for shortness of breath #FEN -Sodium controlled diet -NPO at [place] #Prophylaxis -Heparin 5000units subq TID #Disposition - possible STR vs SNF vs home-VNS Visit type - Emergency Visit Emergency Visit: No - New Patient This patient is new to me today: No - Critical Care Critical Care patient: No ATTENDING PHYSICIAN STATEMENT I saw and evaluated the patient. I reviewed the resident's note and discussed the case with the resident. I agree with the resident's findings and plan as documented. SUBJECTIVE: OBJECTIVE: ASSESSMENT AND PLAN:
[2019-11-18] MEDS: IBUPROFEN 400 MG TABLET (FP) PO PRN (17:49)
--- NOTE | 2019-11-18 18:59 | PN ---
Teaching Attending Note Name of Resident: Billy Martin ATTENDING PHYSICIAN STATEMENT I saw and evaluated the patient. I reviewed the resident's note and discussed the case with the resident. I agree with the resident's findings and plan as documented. SUBJECTIVE: pain in L knee OBJECTIVE: NAD Ext : No edema or erythema. contracted L knee. tenderness to L knee and to L ankle. possible L suprapatellr effusion ( smaller today ) Assessment/Plan: 74 y/o lady with h/o hypertension, hyperlipidemia,R nephrectomy ( unlcear reason ) CAD, s/p CA, s/p stents, COPD, and OA, who presented with CP and L knee pain. 1- CP: atypical . - cont ASA , cont lisinopril - toprol added by Dr. Washington. - echo reviewed. questionable artifact vs vegetation. patient has no signs of endocarditis ( no bacteremia, fever , body aches or other signs ), which supports artifact nature. appreciate Dr. Washington input - f/u for stress as outpt 2- L knee pain, with flexion contraction of Knee and Ankle - steroid injection yesterday - PT 3- Abnormal stomach on CT scan. - Gi series did not show any significant pathology but the gastric duodenal bulb was not visualized. will have her f/u with GI closely as out pt for EGD . no urgency in performing test now, as she has no sx 4- CT scan finding with L3-4 disk bulge. MRI as out pt 5- R nephrectomy. DVT PX : heparin Sq. needs 3 mid nights in hospital fro rehab placement ASSESSMENT AND PLAN:
[2019-11-18] MEDS: ATORVASTATIN CA 40 MG TABLET (FP) PO SCH (21:15)
[2019-11-19] MEDS: IBUPROFEN 400 MG TABLET (FP) PO PRN ×2 (02:23→14:20)
[2019-11-19] MEDS: HEPARIN NA (PORCINE) 5,000 UNITS/ML 1ML VIAL SQ SCH ×3 (05:54→21:26)
[2019-11-19] MEDS ORDERED: PT OWN MED DRAWER 7, Y5N ONE (09:56)
[2019-11-19] MEDS: ASPIRIN 81 MG CHEWABLE TABLETS PO SCH (10:03)
[2019-11-19] MEDS: metoPROLOL SUCCINATE 25 MG TAB.SR.24H (FP) PO SCH (10:03)
[2019-11-19] MEDS: LISINOPRIL 5 MG TABLET (FP) PO SCH (10:03)
[2019-11-19] MEDS: ACETAMINOPHEN 325 MG TABLET (FP) PO PRN ×2 (10:03)
[2019-11-19] MEDS: BUDESONIDE/FORMETEROL FUMARATE 160/4.5 mcg INHALER IH SCH ×2 (10:06→21:27)
--- NOTE | 2019-11-19 12:30 | PN ---
Teaching Attending Note Name of Resident: Billy Martin ATTENDING PHYSICIAN STATEMENT I saw and evaluated the patient. I reviewed the resident's note and discussed the case with the resident. I agree with the resident's findings and plan as documented. SUBJECTIVE: No fever or chills. no SELLERS, L knee is better. Not ambulating much OBJECTIVE: NAD Lungs: CTAB Ext : No edema or erythema. contracted L knee. able to partially straighten the leg. Tenderness to L knee and to L ankle. tearful while moving her leg Assessment/Plan: 74 y/o lady with h/o hypertension, hyperlipidemia, R nephrectomy ( unlcear reason ) CAD, s/p [place], s/p stents, COPD, and OA, who presented with CP and L knee pain. 1- CP: atypical . - cont ASA , cont lisinopril - cont toprol - f/u for stress as outpt 2- L knee pain, with flexion contraction of Knee and Ankle - s/p steroid injection - PT 3- Abnormal stomach on CT scan. s/p GI series as well - will need a full GI w/u ,and possibly EGD as out pt. No sx. 4- CT scan finding with L3-4 disk bulge. MRI as out pt 5- R nephrectomy. DVT PX : heparin Sq. Needs rehab placement
[2019-11-19] MEDS: LIDOCAINE 5% TOPICAL PATCH TP SCH (16:19)
--- NOTE | 2019-11-19 16:38 | PN ---
Physical Exam: SUBJECTIVE: Patient seen and examined NAEON Left knee pain 4/10 today, improved overall. Has pain with extension of Left leg OBJECTIVE: Vital Signs Period Temp Pulse Resp BP Sys/Stern Pulse Ox Last 24 Hr 97.6 F-98.4 F 61-78 20-20 109-132/46-70 93 GENERAL: The patient is awake, alert, and fully oriented, in no acute distress. HEAD: NC/AT. No temporal wasting EYES: sclera anicteric, conjunctiva clear. ENT: Ears normal, nares patent, oropharynx clear without exudates, moist mucous membranes. NECK: Trachea midline, full range of motion, supple. No JVD LUNGS: Breath sounds equal, clear to auscultation bilaterally, no wheezes, no crackles, no accessory muscle use. HEART: Regular rate and rhythm, S1, S2 without murmur, rub or gallop. No TTP of anterior chest wall ABDOMEN: Soft, nontender, nondistended, normoactive bowel sounds, no guarding, no rebound. EXTREMITIES: 2+ pulses, warm, well-perfused, no edema. LLE w/ knee swelling, mild ballotable fluid lateral knee. Left knee edema is slightly improved from yesterday. Small punctate wound from steroid injection, wound at distal lateral patella. Left knee w/o erythema or warmth.Right knee with surgical scar. Painful AROM of Left knee in flexion/extension NEUROLOGICAL: Normal speech, gait not observed. Active Medications Generic Name Dose Route Start Last Admin Trade Name Freq PRN Reason Stop Dose Admin Acetaminophen 650 mg 11/16/19 16:11 11/19/19 10:03 Tylenol - PO 650 mg Q6H PRN Administration PAIN LEVEL 1-5 Aspirin 81 mg 11/17/19 10:00 11/19/19 10:03 Asa - PO 81 mg DAILY HERMILO Administration Atorvastatin Calcium 40 mg 11/18/19 22:00 11/18/19 21:15 Lipitor - PO 40 mg HS HERMILO Administration Budesonide/Formoterol Fumarate 2 puff 11/18/19 10:00 11/19/19 10:06 Symbicort 160/4.5mcg - IH 2 inh BID HERMILO Administration Heparin Sodium (Porcine) 5,000 unit 11/16/19 16:30 11/19/19 14:20 Heparin - SQ 5,000 unit TID HERMILO Administration Ibuprofen 400 mg 11/17/19 08:11 11/19/19 14:20 Motrin - PO 400 mg Q6H PRN Administration PAIN LEVEL 6-10 Lidocaine 1 patch 11/19/19 14:30 11/19/19 16:19 Lidoderm Patch - TP 1 patch DAILY HERMILO Administration Lisinopril 2.5 mg 11/18/19 10:00 11/19/19 10:03 Prinivil PO 2.5 mg DAILY HERMILO Administration Metoprolol Succinate 25 mg 11/19/19 10:00 11/19/19 10:03 Toprol Xl - PO 25 mg DAILY HERMILO Administration Miscellaneous 1 each 11/19/19 22:00 Lidoderm Patch Removal MC DAILY@2200 [facility] ASSESSMENT/PLAN: 74 year old female with history of hypertension, hyperlipidemia, coronary artery disease s/p NC and 4 coronary stents (last one in 2010), COPD (not on home oxygen) presents with complaint of left knee pain. Admitted for ACS r/o. Troponin were neg x3. No notable telemetry events. Echo showing questionable aortic valve vegetations. Patient w/o fever, leukocytosis throughout admission. CT A/P showed questionable stomach wall thickening(vs retained food). XRay upper GI was normal. Patient's hospital admission prolonged due to discharge placement. # Atypical chest pain --likely 2/2 MSK pain --resolved > CXR: scoliolsis > troponins neg x3 > BNP 523 > echo(11/18/19): LVEF 50-55%, moderate focal calcification on aortic valve, small mobile echodensity seen on Left ventricular surface of the aortic valve likely representing an artifact; cannot r/o small vegetations - Telemetry monitoring --uneventful, dc'd # incidental Echo findings(artifact vs vegetations) > echo: L ventric echodensities - Cardio([facility]) consult: --likely artifacts on echo --rec outpt Lexiscan myoview --started Toprol XL 25mg QD #Left knee pain --improving > LLE duplex(11/15/19): neg DVT, popliteal fossa cyst 2.5 x1.4 x1cm > XRay Left knee: no acute path -Orthopedic surgery consult (Dr. Trimble): - rec NSAID - s/p depomedrol+lido injection(11/17/19) -Pain mgmt: Acetaminophen PRN, ibuprofen PRN, lidoderm patch #chronic lower back pain > CT L-spine: L3-L4 disc buldging, mild spinal stenosis - MRI back as outpt # abnormal stomach findings on CT A/P > CT A/P: stomach appears abn vs retained food; hiatal hernia, granulomata vs calcifications of spleen, splenic artery aneursym 1.5cm, Left kidney parapelvic cysts, Right kidney is surgically absent > Upper GI series: normal stomach #Coronary artery disease -Continue home Aspirin 81mg PO daily -cw statin, ACEI -starting Toprol XL 25mg QD #Hypertension - cw lisinopril, imdur COPD -Currently not in exacerbation. -DuoNebs Q6 hours PRN for shortness of breath #FEN -Sodium controlled diet #Prophylaxis -Heparin 5000units subq TID #Disposition - possible STR vs SNF vs home-VNS Visit type - Emergency Visit Emergency Visit: No - New Patient This patient is new to me today: No - Critical Care Critical Care patient: No ATTENDING PHYSICIAN STATEMENT I saw and evaluated the patient. I reviewed the resident's note and discussed the case with the resident. I agree with the resident's findings and plan as documented. SUBJECTIVE: OBJECTIVE: ASSESSMENT AND PLAN:
--- NOTE | 2019-11-19 19:09 | PN ---
Progress Note (short form) - Note Progress Note: PAIN IN LEFT KNEE IMPROVED SLIGHTLY S/P INJECTION OF CORTISONE PLAN: CONTINUE PT, WBAT
[2019-11-19] MEDS: ATORVASTATIN CA 40 MG TABLET (FP) PO SCH (21:26)
[2019-11-20] MEDS: LIDOCAINE PATCH REMOVAL MC SCH (01:58)
[2019-11-20] MEDS: HEPARIN NA (PORCINE) 5,000 UNITS/ML 1ML VIAL SQ SCH ×3 (06:41→21:27)
[2019-11-20] MEDS: IBUPROFEN 400 MG TABLET (FP) PO PRN ×2 (06:48→23:11)
[2019-11-20] MEDS: LISINOPRIL 5 MG TABLET (FP) PO SCH (09:10)
[2019-11-20] MEDS: metoPROLOL SUCCINATE 25 MG TAB.SR.24H (FP) PO SCH (09:10)
[2019-11-20] MEDS ORDERED: PT OWN MED DRAWER 7, Y5N ONE (09:21)
[2019-11-20] MEDS: LIDOCAINE 5% TOPICAL PATCH TP SCH (09:24)
[2019-11-20] MEDS: ASPIRIN 81 MG CHEWABLE TABLETS PO SCH (09:24)
[2019-11-20] MEDS: BUDESONIDE/FORMETEROL FUMARATE 160/4.5 mcg INHALER IH SCH ×2 (09:24→23:17)
--- NOTE | 2019-11-20 16:36 | PN ---
Progress Note (short form) - Note Progress Note: Subjective: No fever or chills. No SELLERS. L knee pain is better. ambulation has slightly improved . She has no light headedness. NO PC . BP was low earlier with no sx but now improved with no intervention Objective: Vital Signs: Last Vital Signs Temp Pulse Resp BP Pulse Ox 98.1 F 65 20 125/53 L 94 L 11/20/19 09:00 11/20/19 12:31 11/20/19 12:31 11/20/19 12:31 11/20/19 09:00 Physical Exam: NAD Lungs: CTAB CV: RRR Ext : No edema or erythema. contracted L knee.. Tenderness to L knee. Assessment/Plan: 74 y/o lady with h/o hypertension, hyperlipidemia, R nephrectomy ( unlcear reason ) CAD, s/p CA, s/p stents, COPD, and OA, who presented with CP and L knee pain. 1- CP: atypical . - cont ASA , cont lisinopril - cont toprol - monitor bP closely - f/u for stress as outpt 2- L knee pain, with flexion contraction of Knee and Ankle. - s/p steroid injection. with slight improvement - PT 3- Abnormal stomach on CT scan. s/p GI series as well - will need a full GI w/u ,and possibly EGD as out pt. No sx. 4- CT scan finding with L3-4 disk bulge. MRI as out pt 5- R nephrectomy. DVT PX: heparin Sq. Rehab placement is pending Visit type - Emergency Visit Emergency Visit: Yes ED Registration Date: 11/17/19 Care time: The patient presented to the Emergency Department on the above date and was hospitalized for further evaluation of their emergent condition. - New Patient This patient is new to me today: No - Critical Care Critical Care patient: No
[2019-11-20] MEDS: ATORVASTATIN CA 40 MG TABLET (FP) PO SCH (21:27)
[2019-11-21] MEDS: LIDOCAINE PATCH REMOVAL MC SCH (00:24)
[2019-11-21] MEDS: ACETAMINOPHEN 325 MG TABLET (FP) PO PRN (04:38)
[2019-11-21] MEDS: HEPARIN NA (PORCINE) 5,000 UNITS/ML 1ML VIAL SQ SCH (06:00)
--- NOTE | 2019-11-21 09:24 | CONS ---
DATE OF CONSULTATION: 11/16/2019 ORTHOPEDIC CONSULTATION HISTORY OF PRESENT ILLNESS: The patient is a 74-year-old female complaining of left knee and ankle pain. It is difficult to get from her a specific history. She says she might have fallen about 6 months ago, and since then she has had pain inside of her knee. She does move along and has been walking on this using a walker, difficult to really get a great understanding of the chronicity for the acute nature of this condition. Negative history of gout or any other rheumatological condition. She does have a significant cardiac history and has had many stents. PHYSICAL EXAMINATION: Musculoskeletal: She has no swelling in the knee or in her ankle. She can actively flex from 20 degrees to 120 degrees but cannot extend her knee past 20 degrees. When I try to extend this, she is in a great deal of pain. She has no erythema, ecchymosis, swelling, excellent stability to varus/valgus anterior/posterior. Calves are soft, nontender. Skin is warm and of normal color. She has no tenderness over the medial and lateral joint line. Left ankle also is held in an everted and plantarflexed position. It is difficult to passively correct it to neutral. In doing so she complains of pain, but she has no erythema, ecchymosis. No point tenderness in any location in or around the ankle. She has 2+ pulses. Brisk capillary refill. Otherwise neurovascularly intact. She has good range of motion of her hips. The contralateral right side has no issues whatsoever. IMAGING: X-rays of the left knee and ankle show some DJD in the knee but otherwise no acute fractures, dislocations, lytic or blastic lesions. IMPRESSION: Significant flexion contracture of the left knee, equinus contracture of the left ankle. Difficult to know how the patient has been managing this period of time. It is also difficult to really grasp what exactly is going on with her. There did not appear to be any impediment to range of motion or logical in nature or just arthritic in nature. I will try getting her a lidocaine and Depo-Medrol injection in the knee. I have ordered the medications injected tomorrow. She needs physical therapy to get involved as well for both her knee and her ankle. She will be placed on and get a neurological evaluation as well. Will see if she gets lidocaine injection . Beverley MESSER/[id number]
[2019-11-21] MEDS ORDERED: PT OWN MED DRAWER 7, Y5N ONE (10:02)
[2019-11-21] MEDS: ASPIRIN 81 MG CHEWABLE TABLETS PO SCH (10:04)
[2019-11-21] MEDS: LISINOPRIL 5 MG TABLET (FP) PO SCH (10:05)
[2019-11-21] MEDS: metoPROLOL SUCCINATE 25 MG TAB.SR.24H (FP) PO SCH (10:06)
[2019-11-21] MEDS: LIDOCAINE 5% TOPICAL PATCH TP SCH (10:06)
[2019-11-21] MEDS: IBUPROFEN 400 MG TABLET (FP) PO PRN (10:06)
--- NOTE | 2019-11-21 10:13 | PN ---
Progress Note, Physician Chief Complaint: Events noted Complains of left knee pain after ambulating History of Present Illness: Patient was seen and examined. Awake and alert. Chart was reviewed Denies chest pain, SOB or palpitations - Current Medication List Current Medications: Active Medications Acetaminophen (Tylenol -) 650 mg PO Q6H PRN PRN Reason: PAIN LEVEL 1-5 Last Admin: 11/21/19 04:38 Dose: 650 mg Aspirin (Asa -) 81 mg PO DAILY [facility] Last Admin: 11/21/19 10:04 Dose: 81 mg Atorvastatin Calcium (Lipitor -) 40 mg PO HS [facility] Last Admin: 11/20/19 21:27 Dose: 40 mg Budesonide/Formoterol Fumarate (Symbicort 160/4.5mcg -) 2 puff IH BID [facility] Last Admin: 11/20/19 23:17 Dose: 2 puff Heparin Sodium (Porcine) (Heparin -) 5,000 unit SQ TID [facility] Last Admin: 11/21/19 06:00 Dose: 5,000 unit Ibuprofen (Motrin -) 400 mg PO Q6H PRN PRN Reason: PAIN LEVEL 6-10 Last Admin: 11/21/19 10:06 Dose: 400 mg Lidocaine (Lidoderm Patch -) 1 patch TP DAILY [facility] Last Admin: 11/21/19 10:06 Dose: 1 patch Lisinopril (Prinivil) 2.5 mg PO DAILY [facility] Last Admin: 11/21/19 10:05 Dose: Not Given Metoprolol Succinate (Toprol Xl -) 25 mg PO DAILY [facility] Last Admin: 11/21/19 10:06 Dose: Not Given Miscellaneous (Lidoderm Patch Removal) 1 each MC DAILY@2200 [facility] Last Admin: 11/21/19 00:24 Dose: 1 each - Objective Vital Signs: Vital Signs Temperature 98.1 F 11/21/19 06:03 Pulse Rate 66 11/21/19 06:03 Respiratory Rate 17 11/21/19 06:03 Blood Pressure 111/56 L 11/21/19 06:03 O2 Sat by Pulse Oximetry (%) 94 L 11/20/19 21:00 Neck: Yes: Supple Cardiovascular: Yes: Regular Rate and Rhythm, Murmur (Soft SM), S1, S2 Respiratory: Yes: CTA Bilaterally Gastrointestinal: Yes: Normal Bowel Sounds, Soft. No: Tenderness Edema: No Problem List - Problems (1) Atypical chest pain Code(s): R07.89 - OTHER CHEST PAIN (2) COPD (chronic obstructive pulmonary disease) Code(s): J44.9 - CHRONIC OBSTRUCTIVE PULMONARY DISEASE, UNSPECIFIED (3) Chest pain Code(s): R07.9 - CHEST PAIN, UNSPECIFIED Qualifiers: Chest pain type: unspecified Qualified Code(s): R07.9 - Chest pain, unspecified (4) Coronary artery disease Code(s): I25.10 - ATHSCL HEART DISEASE OF [place] CORONARY ARTERY W/O ANG PCTRS Qualifiers: Coronary Disease-Associated Artery/Lesion type: [place] artery [place] vs. transplanted heart: [place] heart Associated angina: without angina Qualified Code(s): I25.10 - Atherosclerotic heart disease of [place] coronary artery without angina pectoris (5) Flexion contracture of left knee Code(s): M24.562 - CONTRACTURE, LEFT KNEE (6) History of coronary artery stent placement Code(s): Z95.5 - PRESENCE OF CORONARY ANGIOPLASTY IMPLANT AND GRAFT (7) Hyperlipidemia Code(s): E78.5 - HYPERLIPIDEMIA, UNSPECIFIED Qualifiers: Hyperlipidemia type: pure hypercholesterolemia Qualified Code(s): E78.00 - Pure hypercholesterolemia, unspecified; E78.0 - Pure hypercholesterolemia (8) Hypertension Code(s): I10 - ESSENTIAL (PRIMARY) HYPERTENSION Qualifiers: Hypertension type: essential hypertension Qualified Code(s): I10 - Essential (primary) hypertension Assessment/Plan 1. Atypical chest pain 2. CAD s/p CO s/p stents 3. 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 HTN 5. Hyperlipidemia 6. Right nephrectomy 7. COPD PLAN: 1. PT for left knee discomfort and pain management 2. Continus ASA 81 mg QD, Lipitor 40 mg QHS and Zestril 2.5 mg QD. Continue Toprol XL 25 mg QD as tolerated 3. Nuclear MPI can be done as outpatient Mark Beal MD
[2019-11-21] MEDS: BUDESONIDE/FORMETEROL FUMARATE 160/4.5 mcg INHALER IH SCH (11:10)
[2019-11-21 11:13] VITALS: BP 127/71; PULSE 104; TEMP 97.6
--- NOTE | 2019-11-21 12:20 | PN ---
Teaching Attending Note Name of Resident: Billy Martin ATTENDING PHYSICIAN STATEMENT I saw and evaluated the patient. I reviewed the resident's note and discussed the case with the resident. I agree with the resident's findings and plan as documented. SUBJECTIVE: No fever or chills. L knee pain is better but she still has pain with ambulation . No CP or SOB OBJECTIVE: NAD Lungs: CTAB CV: RRR Ext : No edema or erythema. contracted L knee.. Tenderness to L knee. Assessment/Plan: 74 y/o lady with h/o hypertension, hyperlipidemia, R nephrectomy ( unlcear reason ) CAD, s/p AR, s/p stents, COPD, and OA, who presented with CP and L knee pain. 1- CP: atypical. - cont ASA, cont lisinopril - cont toprol - f/u for stress as outpt 2- L knee pain, with flexion contraction of Knee and Ankle. - s/p steroid injection. with slight improvement - cont PT at rehab 3- Abnormal stomach on CT scan. s/p GI series as well - will need a full GI w/u ,and possibly EGD as out pt. 4- CT scan finding with L3-4 disk bulge. MRI as out pt . neuro sx f/u with Dr. Whitten 5- R nephrectomy. dc to rehab. A bed is available today
--- NOTE | 2019-11-21 15:50 | DS ---
Physical Exam: SUBJECTIVE: Patient seen and examined OBJECTIVE: Vital Signs Period Temp Pulse Resp BP Sys/Stern Pulse Ox Last 24 Hr 97.5 F-98.3 F 58-104 15-20 99-134/45-72 94 PHYSICAL EXAM GENERAL: The patient is awake, alert, and fully oriented, in no acute distress. HEAD: NC/AT. No temporal wasting EYES: sclera anicteric, conjunctiva clear. ENT: Ears normal, nares patent, oropharynx clear without exudates, moist mucous membranes. NECK: Trachea midline, full range of motion, supple. No JVD LUNGS: Breath sounds equal, clear to auscultation bilaterally, no wheezes, no crackles, no accessory muscle use. HEART: Regular rate and rhythm, S1, S2 without murmur, rub or gallop. No TTP of anterior chest wall ABDOMEN: Soft, nontender, nondistended, normoactive bowel sounds, no guarding, no rebound. EXTREMITIES: 2+ pulses, warm, well-perfused, no edema. LLE w/ knee swelling, mild ballotable fluid lateral knee. Left knee edema is slightly improved from yesterday. Small punctate wound from steroid injection, wound at distal lateral patella. Left knee w/o erythema or warmth.Right knee with surgical scar. Painful AROM of Left knee in flexion/extension NEUROLOGICAL: Normal speech, gait not observed. LABS HOSPITAL COURSE: Date of Admission:11/17/19 Date of Discharge: 11/21/19 74 year old female with history of hypertension, hyperlipidemia, coronary artery disease s/p [place] and 4 coronary stents (last one in 2010), COPD (not on home oxygen) presents with complaint of left knee pain. Admitted for ACS r/o. Troponin were neg x3. No notable telemetry events. Echo showing questionable aortic valve vegetations. Patient w/o fever, leukocytosis throughout admission. Cardio([facility]) evaluated and determined that echo was likely artifact. Pt started on Toprol XL d/t ho CAD. CT A/P showed questionable stomach wall thickening(vs retained food). XRay upper GI was normal. LLE neg for DVT. Orthopedist(Jorge) injected medrol+lido into Left knee with some improvement of pain. Patient's hospital admission prolonged due to discharge placement. Minutes to complete discharge: 37 Discharge Summary Problems reviewed: Yes Reason For Visit: CHEST PAIN; R/O ACUTE MYOCARDIAL INFARCTION Condition: Improved - Instructions Diet, Activity, Other Instructions: You were evaluated in the hospital for severe Left knee pain that radiated up to your chest. You were admitted to for close ekg monitor but there were no notable findings. Your EKG and lab work were not suggestive of a cardiac issue. You were transferred out of the telemetry floor. A CT scan of your abdomen showed possible thickening of your stomach wall but it was unclear if it was due to artifact. A xray swallowing study did not show any abnormalities of your gastrointestinal system. Your Left knee pain improved slightly after getting a steroid injection to the knee. An echocardiogram was performed to evaluate the function of your heart. A informatica architect determined that there were no major abnormalities. You were started on a new heart medication Medications: - NEW Medications: -- ibuprofen 400mg, every 6 hours as needed for Left knee pain -- lidocaine[LIDODERM PATCH], applied to Left knee for 12hours on then 12hs off -- metoprolol succinate[TOPROL XL] 25mg, once daily - Resume your other home medications Please follow-up with the physicians below within 1 week: - Primary Care Physician: to discuss your recent hospitalization, getting a lower back MRI - Orthopedist(Jorge): to discuss your chronic Left knee pain - Deicer Repairer Pneumatic(Felix): to discuss getting a stress test - GI Dr. Aggarwal, as you might need EGD ( endoscopy ) to address the posssible abnormal CT of your stomach - Neurosurgeon , Dr. Carrington , to evaluate the disc bulge at level of L3-4. seen on CT scan . You will le MRI of the L spine Please seek immediate medical care if you experience: - severe chest pain, chest pressure, palpitations - severe worsening knee pain, severe redness Referrals: Joshua Whitten MD, FAANS [Staff Physician] - 2 Weeks Holden Patel MD [Staff Physician] - 1 Week Marilyn Aggarwal DO [Staff Physician] - 3 Weeks Martir Washington MD [Staff Physician] - 2 Weeks Yumiko Pryor [Primary Care Provider] - 1 Week Disposition: LONG TERM FACILITY - Home Medications Comprehensive Discharge Medication List: Ambulatory Orders Aspirin [ASA -] 81 mg PO DAILY 03/30/14 Atorvastatin Ca [Lipitor] 40 mg PO DAILY 11/17/19 Budesonide/Formeterol Fumarate [SYMBICORT 160/4.5mcg -] 2 inh IH DAILY 11/17/19 Isosorbide Mononitrate [Imdur -] 60 mg PO DAILY 11/17/19 Lisinopril [Zestril] 2.5 mg PO DAILY 11/17/19 Albuterol Sulfate Inhaler - [Ventolin HFA Inhaler -] 1 - 2 inh PO Q4H #1 inhaler 11/21/19 Ibuprofen [Motrin -] 400 mg PO Q6H PRN tablet 11/21/19 Lidocaine 5% Patch [Lidoderm -] 1 patch TP DAILY patch 11/21/19 Lidocaine Patch Removal [Lidoderm Patch Removal] 1 each MC DAILY@2200 each Metoprolol Succinate [Toprol XL -] 25 mg PO DAILY tab.sr.24h 11/21/19 This patient is new to me today: No Emergency Visit: No Critical Care patient: No - Discharge Referral Referred to [facility] Med P.C.: No ATTENDING PHYSICIAN STATEMENT I saw and evaluated the patient. I reviewed the resident's note and discussed the case with the resident. I agree with the resident's findings and plan as documented. SUBJECTIVE: OBJECTIVE: ASSESSMENT AND PLAN:
== END 2019-11-21 13:10 | DRG 556 ==
LOC: JER 11:54 → JERBED 14:56 → J4W 17:55 → J8W 11-16 13:51 → OBSVTOIN 11-17 15:46
PROVIDERS: ADMIT Internal Medicine; ATTEND Internal Medicine
PROC: 3E0U33Z Introduction of Anti-inflammatory into Joints, Percutaneous Approach (ICD-10-PCS; principal; 2019-11-17)
DX: M25.562 Pain in left knee (principal); M51.26 Other intervertebral disc displacement, lumbar region; R07.89 Other chest pain; M41.9 Scoliosis, unspecified; J44.9 Chronic obstructive pulmonary disease, unspecified; M48.061 Spinal stenosis, lumbar region without neurogenic claudication; I10 Essential (primary) hypertension; E78.5 Hyperlipidemia, unspecified; I25.10 Atherosclerotic heart disease of native coronary artery without angina pectoris; Z95.5 Presence of coronary angioplasty implant and graft; F17.210 Nicotine dependence, cigarettes, uncomplicated
CPT/HCPCS: 36415; 71046-TC-FY; 72131-TC; 73523-TC-FY; 73560-TC-LT-FY; 73610-TC-LT-FY; 73630-TC-LT; 74176-TC; 74247-TC-FY; 80053; 82550; 82553; 83735; 83880; 84100; 84484; 85025; 85027; 85610; 85730; 93005; 93010; 93306-TC; 93971-TC; 97116-GP; 97161-GP; 99282-25; G0378; J1644

== ENCOUNTER 2020-01-14 15:57 | Inpatient (IN) | payer OTHER ==
--- NOTE | 2020-01-14 16:40 | PDOC ---
Attending Attestation - Resident Resident Name: Holden Harris - ED Attending Attestation I have performed the following: I have examined & evaluated the patient, The case was reviewed & discussed with the resident, I agree w/resident's findings & plan
[2020-01-14] MEDS ORDERED: ACETAMINOPHEN 1000 MG/100 ML VIAL (NON FORMULARY) IVPB ONE (16:49)
[2020-01-14] MEDS ORDERED: ACETAMINOPHEN INJECTION 100 ML IVPB ONE (17:05)
--- NOTE | 2020-01-14 17:10 | PDOC ---
History of Present Illness - General Chief Complaint: Injury Stated Complaint: FELL (YESTERDAY) Time Seen by Provider: 01/14/20 16:25 - History of Present Illness Initial Comments: 74F PMH HTN, HLD, CAD s/p 4 stents on ASA, COPD presenting 1 day after fall in the bathroom w/ head strike but w/o LOC; not on AC. Pt was going to sit on the toilet, missed the toilet, and fell into the bathtub; states she hit all over. Pain of her left forearm, denies head, neck, back, hip, or leg pain. Denies numbness, tingling, weakness. Denies preceeding chest pain, sob, blurry vision, dizziness. Denies f/c. Pt was evaluated at [facility] after incident and films of the left arm; told "nothing was wrong" and discharged. Pt and daughter provide poor / unclear hx regarding ED course at [facility]. C/o continued left arm pain. Pt also endorsing recent frequent nonradiating substernal chest pain starting at rest and lasting for 15-20mins; attributes to recent stress 2/2 being undomiciled. Pt currently moving around hotels w/ daughter. NKDA. PCP [facility] Past History - Past Medical History Allergies/Adverse Reactions: Allergies Allergy/AdvReac Type Severity Reaction Status Date / Time No Known Allergies Allergy Verified 01/15/20 19:19 Home Medications: Ambulatory Orders Unobtainable 01/15/20 Cardiac Disorders: Yes COPD: Yes Diabetes: Yes HTN: Yes - Surgical History Cardiac Surgery: Yes (stents x 4) - Psycho Social/Smoking Cessation Hx Smoking Status: Yes Smoking History: Current every day smoker Years of Tobacco Use: 40 Have you smoked in the past 12 months: Yes Number of Cigarettes Smoked Daily: 20 Information on smoking cessation initiated: Yes 'Breaking Loose' booklet given: 11/15/19 Hx Alcohol Use: No Drug/Substance Use Hx: No Substance Use Type: None Hx Substance Use Treatment: No Review of Systems - Review of Systems Able to Perform ROS?: Yes Comments:: CONSTITUTIONAL: Denies F / C HEENT: Denies headache, neck pain. RESP: Denies SOB CARD: endorses chest pain GI: Denies N / V / D. endorses chronic issues w/ constipation. : Denies dysuria SKIN: Denies rashes NEURO: Denies numbness, tingling, weakness MSK: endorses left arm pain *Physical Exam - Vital Signs Last Vital Signs Temp Pulse Resp BP Pulse Ox 97.3 F L 105 H 18 122/77 98 01/14/20 15:57 01/14/20 15:57 01/14/20 15:57 01/14/20 15:57 01/14/20 15:57 - Physical Exam GEN: Well appearing, NAD, comfortable. AAOx3. HEENT: Light green bruising over the left forehead o/w no obvious deformities. CN II-XII intact, EOMI, PERRL. No facial asymmetry. Normal voice. Supple neck w / FROM w/o TTP. CV: S1/S2, RRR, no m/r/g LUNG: CTAB, no wheezes, crackles, rales, rhonchi. GI: Soft, ndnt, +BS, no guarding, no rebound. SKIN: Ecchymosis of the b/l forearms. Warm, dry, no rashes appreciated. PSYCH: Normal mood and affect. NEURO: Moving all extremities well. strength 5/5 RUE; 4/5 LUE lmited 2/2 pain. 5 /5 LE strength b/l. Sensation symmetric and intact throughout. BACK: No obvious deformities, no step offs, no midline TTP. There is no pelvic instability. No signs of trauma. MSK: +TTP left mid ulna w/o obvious deformities w/ overlying ecchymosis, pulses present, sensation intact. ROM reduced 2/2 pain on left wrist. FROM of L elbow and L shoulder. No TTP, FROM of RUE or b/l LEs. 2+ distal pulses. No LE edema. No obvious deformities of all extremities. Procedures - Splinting Splint Location: Left: Forearm Pre-Proc Neuro Vasc Exam: normal Hand-Made Type: orthoglass Splint Type: Yes: Allie Zee Post-Proc Neuro Vasc Exam: normal Brandon Bandage: 4" Sling: No Complications: No Progress: 01/14/20 20:40 4" orthoglass molded to patient's LUE. Kerlex and webrol applied as base layer; neurovascularly intact Sugar Tong splint applied with hand in neutral position subsequently BRANDON bandaged. Post splint - there was no pain, numbness, or tingling. +pulses. Symmetric sensation and moving all fingers. Pt tolerated procedure well. Heart Score/ECG Review - History History: Slightly suspicious - Electrocardiogram EKG: Non specific repolarization disturbance - Age Age: >/= 65 - Risk Factors Risk Factors Heart Score: Yes Hx Hypercholesterolemia, Yes Hx Hypertension, Yes Smoking History Based on the list above the patient has:: >/=3 risk factors or Hx atherosclerotic disease - Troponin Troponin: </= normal limit - Score Heart Score - Total: 5 ED Treatment Course - LABORATORY CBC & Chemistry Diagram: 01/16/20 07:18 01/16/20 07:18 - RADIOLOGY Radiology Studies Ordered: Category Date Time Status CERVICAL SPINE CT W/O CONTR [CT] Stat CT Scan 01/14/20 17:[address] WITHOUT CONTRAST [CT] Stat CT Scan 01/14/20 17:06 Ordered CHEST X-RAY PORTABLE* [RAD] Stat Radiology 01/14/20 17:06 Ordered WRIST-LEFT [RAD] Stat Radiology 01/14/20 17:06 Ordered Medical Decision Making - Medical Decision Making 01/14/20 17:10 74F PMH HTN, HLD, CAD s/p 4 stents on ASA, COPD presenting 1 day after fall w/ head strike w/o LOC, not on AC. Was chris at [facility]. +TTP of the left mid ulna ; also endorsing frequent chest pain. DDx - syncope?; arrhythmia, lytes, anemia. eval for traumatic fractures of head , neck, left arm. - CBC, CMP, Cardiac, Coags - CT - XRs - EKG - tylenol IV Spoke with [facility] ED and confirmed that patient received CT head, neck, and XR of the left arm; reads not provided. 01/14/20 17:53 ED read of Left Wrist XR: non-comminuted, medially displaced distal ulnar fracture on PA view. f/u official read. - will further characterize fracture w/ forearm and elbow films 01/14/20 18:22 EKG 1812 HR 87 OR 140 QRS 84 QTc 454; NSR, PVC, TWI III and V1 present in prior EKG on 11/15/19 01/14/20 18:41 Elbow and forearm films reviewed by ED team - distal ulnar fracture. f/u official read. Will apply sugar tong splint. 01/14/20 18:53 labs reviewed Keflex for UTI f/u CT splint admit tele 01/14/20 20:39 sugar tong splint applied to the LUE; see procedure note. 01/14/20 20:51 IOC - CT HEAD: FINDINGS: No intracranial hemorrhage midline shift, mass or skull fracture. Nix white matter demarcation intact. 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 Ventricles, sulci and basal cisterns are within normal for age. Visualized paranasal sinuses and mastoid air cells are clear. Orbital structures are intact. IMPRESSION: No acute intracranial findings. THIS DOCUMENT HAS BEEN ELECTRONICALLY SIGNED Mone Morales D.O. 01/14/20 20:55 IOC - CT NECK FINDINGS: No acute fracture, subluxation, jumped facet, or soft tissue injury. Cervical alignment normal. No spinal stenosis or large disc herniation. Prevertebral and paraspinal soft tissues are normal. Occipital condyles, C1 ring and odontoid are intact. No pneumothorax identified in the lung apices. IMPRESSION: No acute fracture or subluxation of the cervical spine. THIS DOCUMENT HAS BEEN ELECTRONICALLY SIGNED Mone Morales D.O. Discharge - Discharge Information Problems reviewed: Yes Clinical Impression/Diagnosis: Chest pain at rest UTI (urinary tract infection) Qualifiers: Urinary tract infection type: site unspecified Hematuria presence: without hematuria Qualified Code(s): N39.0 - Urinary tract infection, site not specified Ulna distal fracture Qualifiers: Encounter type: initial encounter Fracture type: closed Fracture morphology: unspecified fracture morphology Laterality: left Qualified Code(s): S52.602A - Unspecified fracture of lower end of left ulna, initial encounter for closed fracture Condition: Stable - Follow up/Referral - Patient Discharge Instructions - Post Discharge Activity
[2020-01-14 17:44] LABS: BASO % 0.7 % (0-2.0); EOS % 1.4 % (0-4.5); HEMATOCRIT 37.5 % (32.4-45.2); HEMOGLOBIN 12.3 GM/dL (10.7-15.3); LYMPH % 22.5 % (8-40); MCH 33.3 pg (25.7-33.7); MCHC 32.7 g/dl (32.0-36.0); MEAN CELL VOLUME 101.8 fl (80-96); MEAN PLT VOLUME 8.8 fl (7.5-11.1); MONO % 8.7 % (3.8-10.2); NEUT % 66.7 % (42.8-82.8); PLATELET COUNT 302 K/MM3 (134-434); RBC 3.69 M/mm3 (3.60-5.2); RDW 14.1 % (11.6-15.6); WHITE BLOOD COUNT 7.2 K/mm3 (4.0-10.0)
[2020-01-14 17:57] LABS: INR 0.88 (0.83-1.09); PROTHROMBIN TIME (PATIENT) 10.4 SEC (9.7-13.0)
[2020-01-14 17:59] LABS: ACTIVATED PTT 20.2 SECONDS (25.2-36.5)
[2020-01-14 18:17] LABS: ALBUMIN 3.4 g/dl (3.4-5.0); ALK PHOS 90 U/L (45-117); ANION GAP 7 MMOL/L (8-16); BILIRUBIN,TOTAL 0.7 mg/dL (0.2-1); BLOOD UREA NITROGEN 14.1 mg/dL (7-18); CALCIUM 9.3 mg/dL (8.5-10.1); CHLORIDE 108 mmol/L (98-107); CO2 25 mmol/L (21-32); CREATININE 1.1 mg/dL (0.55-1.3); GLUCOSE,RANDOM 95 mg/dL (74-106); POTASSIUM 4.4 mmol/L (3.5-5.1); SGOT/AST 22 U/L (15-37); SGPT/ALT 17 U/L (13-61); SODIUM 140 mmol/L (136-145); TOT PROT 6.8 g/dl (6.4-8.2)
[2020-01-14 18:23] LABS: EPI CELLS 15.4 /HPF (0-5/HPF); HYALINE CASTS 30 /lpf (0-8); URINE APPEARANCE CLOUDY; URINE BACTERIA 80.4 /hpf (NEGATIVE); URINE BILIRUBIN NEGATIVE (NEGATIVE); URINE COLOR DK YELLOW; URINE GLUCOSE (UA) NEGATIVE (NEGATIVE); URINE KETONE NEGATIVE (NEGATIVE); URINE LEUK ESTERASE 2+ (NEGATIVE); URINE NITRITE NEGATIVE (NEGATIVE); URINE PROTEIN NEGATIVE (NEGATIVE); URINE RBC 9 /hpf (0-4); URINE WBC 107 /hpf (0-5)
[2020-01-14] MEDS ORDERED: CEPHALEXIN MONOHYDRATE 500 MG CAPSULE (UD) PO ONE (18:50)
--- NOTE | 2020-01-14 19:31 | PDOC ---
Documentation entered by Sabine Washington SCRIBE, acting as scribe for Luly West DO. Luly West DO: This documentation has been prepared by the ryan, Sabine Washington SCRIBE, under my direction and personally reviewed by me in its entirety. I confirm that the documentation accurately reflects all work , treatment, procedures, and medical decision making performed by me. Attending Attestation - Resident Resident Name: Holden Harris - ED Attending Attestation I have performed the following: I have examined & evaluated the patient, The case was reviewed & discussed with the resident, I agree w/resident's findings & plan - HPI HPI: 01/14/20 18:13 The patient is a 74-year-old female with a past medical history significant for CAD s/p stenting who presents to the emergency department with intermittent chest pain for several days and s/p a recent fall while trying to get up from the toilet. The patient was seen at another facility, however, the patient is a poor historian regarding the details of the workup. The patient is also complaining of left wrist pain. - Physicial Exam PE: 01/14/20 18:16 Agree with the resident - Medical Decision Making 01/14/20 19:25 74-year-old female with history of coronary artery disease status post fall complaining of left upper extremity pain, patient states she also hit her head X-rays of the upper extremity are consistent with a displaced ulnar fracture, with no extremity neurovascular compromise We will splint Plan on admission medically for chest pain with significant cardiac history Of note patient has inconsistent living conditions and has been going from hotel to hotel, outpatient follow-up has been difficult
[2020-01-14] MEDS ORDERED: ALBUTEROL SO4 HFA INHALER IH SCH (23:45)
[2020-01-14] MEDS ORDERED: CEPHALEXIN MONOHYDRATE 500 MG CAPSULE (UD) ONE (23:53)
[2020-01-15] MEDS ORDERED: ALBUTEROL SO4 0.083% IH SOL 2.5 MG/3 ML VIAL.NEB. NEB ONE (00:23)
[2020-01-15] MEDS ORDERED: ALBUTEROL SO4 HFA INHALER IH PRN (01:17)
[2020-01-15] MEDS ORDERED: IBUPROFEN 400 MG TABLET (FP) PO PRN (02:46)
--- NOTE | 2020-01-15 02:51 | PN ---
Teaching Attending Note Name of Resident: Tae Lee ATTENDING PHYSICIAN STATEMENT I saw and evaluated the patient. I reviewed the resident's note and discussed the case with the resident. I agree with the resident's findings and plan as documented. SUBJECTIVE: 74 woman w/ PMH HTN, HLD, CAD s/p 4 stents on ASA, COPD presenting 1 day after a fall after she missed the toilet and when she was attempting to sit on it, no loc, there was trauma to head and left upper extremity. Patient was seen at [facility] and was discharged home. Returns because of pain in her left hand. Complained of some left wrist pain in the emergency room here and x-ray showed distal ulnar diaphyseal fracture. Patient also complained of some chest pain which has been intermittent for a long period of time. Patient is an extremely poor historian and history is mainly obtained from the EMR. OBJECTIVE: Last Vital Signs Temp Pulse Resp BP Pulse Ox 97.6 F 88 19 118/62 97 01/14/20 23:09 01/14/20 23:09 01/14/20 23:09 01/14/20 23:09 01/14/20 23:09 On physical exam patient is a frail, elderly lady in no acute distress. Head is atraumatic, no ecchymosis noted on skin. Pupils are reactive bilaterally, sclera nonicteric. Left upper extremity was in a cast. Fingers were warm to touch with good sensation. Chest was clear to auscultation bilaterally. Heart sounds were normal, S1, S2 regular rate and rhythm. Abdomen was soft, nontender. Lower extremities were nontender to palpation. Abnormal Lab Results 01/14/20 01/14/20 01/14/20 17:27 17:27 17:27 MCV 101.8 H PTT (Actin FS) 20.2 L Chloride 108 H Anion Gap 7 L CK-MB (CK-2) 6.0 H Ur Leukocyte Esterase 01/14/20 18:00 MCV PTT (Actin FS) Chloride Anion Gap CK-MB (CK-2) Ur Leukocyte Esterase 2+ H ekg- no ischemic changes CT of head was performed and showed no intracranial hemorrhage, mass or skull fracture. No acute intracranial findings. CT of the neck showed no acute fracture or subluxation of the cervical spine. Chest x-ray showed no evidence of acute pulmonary disease or thoracic injury. Left wrist x-ray showed a distal ulnar diaphyseal fracture. Left elbow x-ray no evidence of fracture or subluxation or effusion ASSESSMENT AND PLAN: #Chest pain-atypical tele-observation trend troponin echo cardiology consult NGL prn sublingual #Left ulnar Distal fracture ibuprofen prn for pain maintain left arm splint orthopedics consult- Dr. Florentino #Hypertension Continue with lisinopril, Toprol 25 mg p.o. daily Isosorbide #Dyslipidemiacontinue with Lipitor 40 mg daily #COPDno exacerbation noted Continue with Symbicort Albuterol PRN Avoidance of tobacco Would hold aspirin at this time in case of potential orthopedic surgery DVT prophylaxisSCDs
[2020-01-15] MEDS ORDERED: NITROGLYCERIN SUBLINGUAL 1/200 0.3 MG BTL SL PRN (02:58)
--- NOTE | 2020-01-15 03:09 | HP ---
CHIEF COMPLAINT: PCP: [facility] HISTORY OF PRESENT ILLNESS: Pt is a 74 y/o F with PMH HTN, HLD, CAD s/p 4 stents, COPD who presented to ED with complaint of L forearm pain since falling 2 days ago and L chest pain intermittently over the last 10 years. In ED, pt was found to have left distal ulnar fracture, which was splinted. She likely developed the fracture when she fell 2 days ago. Pt states she went to use the restroom and as she was going to sit on the toilet, she missed and fell back into the bathtub hitting he head in the process. Denies LOC. Not on blood thinners. At the time of the interview, pt stated she felt ok. She complained of L stabbing chest pain worse with deep breath and with pressing on the chest. Pain has been present on and off for 10 years. Of note, pt has 4 stents and was sympomatic prior to their placement. She states that at that time she had a pain which was tearing in nature and radiated to her back, which is very different from the chest discomfort she presently feels. ER course was notable for: (1) EKG with isolated TWI in V1 and III, present on previous EKG. Trop neg (2) (3) Recent Travel: denies PAST MEDICAL HISTORY: HTN, HLD, CAD s/p 4 stents, COPD PAST SURGICAL HISTORY: Stents Social History: Smoking: active 2 ppd since 22 years old Alcohol: denies Drugs: denies Allergies No Known Allergies Allergy (Verified 11/15/19 12:19) HOME MEDICATIONS: Home Medications Medication Instructions Recorded Aspirin [ASA -] 81 mg PO DAILY 03/30/14 Atorvastatin Ca [Lipitor] 40 mg PO DAILY 11/17/19 Budesonide/Formeterol Fumarate 2 inh IH DAILY 11/17/19 [SYMBICORT 160/4.5mcg -] Isosorbide Mononitrate [Imdur -] 60 mg PO DAILY 11/17/19 Lisinopril [Zestril] 2.5 mg PO DAILY 11/17/19 Albuterol Sulfate Inhaler - 1 - 2 inh PO Q4H #1 inhaler 11/21/19 [Ventolin HFA Inhaler -] Ibuprofen [Motrin -] 400 mg PO Q6H PRN tablet 11/21/19 Lidocaine 5% Patch [Lidoderm -] 1 patch TP DAILY patch 11/21/19 Lidocaine Patch Removal [Lidoderm 1 each MC DAILY@2200 each 11/21/19 Patch Removal] Metoprolol Succinate [Toprol XL -] 25 mg PO DAILY tab.sr.24h 11/21/19 REVIEW OF SYSTEMS CONSTITUTIONAL: Absent: fever, chills, diaphoresis, generalized weakness, malaise, loss of appetite, weight change HEENT: Absent: rhinorrhea, nasal congestion, throat pain, throat swelling, difficulty swallowing, mouth swelling, ear pain, eye pain, visual changes CARDIOVASCULAR: chest pain Absent: , syncope, palpitations, irregular heart rate, lightheadedness, peripheral edema RESPIRATORY: Absent: cough, shortness of breath, dyspnea with exertion, orthopnea, wheezing, stridor, hemoptysis GASTROINTESTINAL: Absent: abdominal pain, abdominal distension, nausea, vomiting, diarrhea, constipation, melena, hematochezia GENITOURINARY: Absent: dysuria, frequency, urgency, hesitancy, hematuria, flank pain, genital pain MUSCULOSKELETAL: myalgia, arthralgia Absent: , joint swelling, back pain, neck pain SKIN: Absent: rash, itching, pallor HEMATOLOGIC/IMMUNOLOGIC: Absent: easy bleeding, easy bruising, lymphadenopathy, frequent infections ENDOCRINE: Absent: unexplained weight gain, unexplained weight loss, heat intolerance, cold intolerance NEUROLOGIC: Absent: headache, focal weakness or paresthesias, dizziness, unsteady gait, seizure, mental status changes, bladder or bowel incontinence PSYCHIATRIC: Absent: anxiety, depression, suicidal or homicidal ideation, hallucinations. PHYSICAL EXAMINATION Vital Signs - 24 hr 01/14/20 01/14/20 15:57 23:09 Temperature 97.3 F L 97.6 F Pulse Rate 105 H Pulse Rate [ 88 Right Radial] Respiratory 18 19 Rate Blood Pressure 122/77 Blood Pressure 118/62 [Right Arm] O2 Sat by Pulse 98 97 Oximetry (%) Gen: AAOx3, NAD HEENT: NCAT, EOMI Neck: no bruits Cardio: rrr, normal s1s2, 3/6 systolic murmur Pulm: mild late expiratory wheeze Abd: soft, nontender, nondistended Ext: no edema Laboratory Results - last 24 hr 01/14/20 01/14/20 01/14/20 17:27 17:27 17:27 WBC 7.2 RBC 3.69 Hgb 12.3 Hct 37.5 MCV 101.8 H MCH 33.3 MCHC 32.7 RDW 14.1 Plt Count 302 MPV 8.8 Absolute Neuts (auto) 4.8 Neutrophils % 66.7 Lymphocytes % 22.5 D Monocytes % 8.7 Eosinophils % 1.4 Basophils % 0.7 Nucleated RBC % 0 PT with INR 10.40 INR 0.88 PTT (Actin FS) 20.2 L Sodium 140 Potassium 4.4 Chloride 108 H Carbon Dioxide 25 Anion Gap 7 L BUN 14.1 Creatinine 1.1 Est GFR (CKD-EPI)AfAm 58.09 Est GFR (CKD-EPI)NonAf 50.12 Random Glucose 95 Calcium 9.3 Total Bilirubin 0.7 AST 22 ALT 17 Alkaline Phosphatase 90 Creatine Kinase 150 Creatine Kinase Index 4.0 CK-MB (CK-2) 6.0 H Troponin I < 0.02 Total Protein 6.8 Albumin 3.4 Urine Color Urine Appearance Urine pH Ur Specific [place] Urine Protein Urine Glucose (UA) Urine Ketones Urine Blood Urine Nitrite Urine Bilirubin Urine Urobilinogen Ur Leukocyte Esterase Urine WBC (Auto) Urine RBC (Auto) Urine Casts (Auto) U Epithel Cells (Auto) Urine Bacteria (Auto) 01/14/20 18:00 WBC RBC Hgb Hct MCV MCH MCHC RDW Plt Count MPV Absolute Neuts (auto) Neutrophils % Lymphocytes % Monocytes % Eosinophils % Basophils % Nucleated RBC % PT with INR INR PTT (Actin FS) Sodium Potassium Chloride Carbon Dioxide Anion Gap BUN Creatinine Est GFR (CKD-EPI)AfAm Est GFR (CKD-EPI)NonAf Random Glucose Calcium Total Bilirubin AST ALT Alkaline Phosphatase Creatine Kinase Creatine Kinase Index CK-MB (CK-2) Troponin I Total Protein Albumin Urine Color Dk yellow Urine Appearance Cloudy Urine pH 5.0 Ur Specific [place] 1.018 Urine Protein Negative Urine Glucose (UA) Negative Urine Ketones Negative Urine Blood Negative Urine Nitrite Negative Urine Bilirubin Negative Urine Urobilinogen 1.0 Ur Leukocyte Esterase 2+ H Urine WBC (Auto) 107 Urine RBC (Auto) 9 Urine Casts (Auto) 30 U Epithel Cells (Auto) 15.4 Urine Bacteria (Auto) 80.4 ASSESSMENT/PLAN: Pt is a 74 y/o F with PMH HTN, HLD, CAD s/p 4 stents, COPD who presented to ED with L arm and L chest pain. Pt was found to have L ulnar fracture. R/O ACS -strong cardiac history -lost to follow up -atypical chest pain -trop neg x 1. Trend pending -EKG with old isolated twi -cards consulted -sublingal nitro L ulnar fracture -pain control -splined in ED -ortho consulted HTN - Has been off meds - toprol CAD -ASA -Atorvastatin COPD -2/2 smoking -resume symbicort -resume inhaler Visit type - Emergency Visit Emergency Visit: Yes ED Registration Date: 01/14/20 Care time: The patient presented to the Emergency Department on the above date and was hospitalized for further evaluation of their emergent condition. - New Patient This patient is new to me today: Yes Date on this admission: 01/15/20 - Critical Care Critical Care patient: No ATTENDING PHYSICIAN STATEMENT I saw and evaluated the patient. I reviewed the resident's note and discussed the case with the resident. I agree with the resident's findings and plan as documented. SUBJECTIVE: OBJECTIVE: ASSESSMENT AND PLAN:
[2020-01-15] MEDS ORDERED: ACETAMINOPHEN 1000 MG/100 ML VIAL (NON FORMULARY) IVPB PRN (03:12)
[2020-01-15] MEDS ORDERED: ACETAMINOPHEN 650 MG/20.3 ML ORAL SOLUTION (CUPS) PO PRN (03:18)
[2020-01-15] MEDS ORDERED: NITROGLYCERIN SUBLINGUAL 1/150 0.4 MG TAB SL PRN (04:14)
[2020-01-15] MEDS ORDERED: HEPARIN NA (PORCINE) 5,000 UNITS/ML 1ML VIAL SQ SCH (06:00)
[2020-01-15 06:40] LABS: EOS % 1.7 % (0-4.5); HEMATOCRIT 37.6 % (32.4-45.2); HEMOGLOBIN 12.7 GM/dL (10.7-15.3); MCH 34.1 pg (25.7-33.7); MCHC 33.7 g/dl (32.0-36.0); MEAN CELL VOLUME 101.1 fl (80-96); MEAN PLT VOLUME 8.3 fl (7.5-11.1); MONO % 8.3 % (3.8-10.2); PLATELET COUNT 334 K/MM3 (134-434); RBC 3.71 M/mm3 (3.60-5.2); RDW 14.1 % (11.6-15.6); WHITE BLOOD COUNT 8.4 K/mm3 (4.0-10.0)
[2020-01-15 06:58] LABS: ACTIVATED PTT 32.3 SECONDS (25.2-36.5)
[2020-01-15 07:08] LABS: ALBUMIN 3.9 g/dl (3.4-5.0); BLOOD UREA NITROGEN 17.6 mg/dL (7-18); CREATININE 1.3 mg/dL (0.55-1.3); MAGNESIUM 2.6 mg/dL (1.8-2.4); PHOSPHOROUS 3.9 mg/dL (2.5-4.9); POTASSIUM 4.2 mmol/L (3.5-5.1); TOT PROT 7.1 g/dl (6.4-8.2)
[2020-01-15] MEDS ORDERED: BUDESONIDE/FORMETEROL FUMARATE 160/4.5 mcg INHALER IH SCH (10:00)
[2020-01-15] MEDS ORDERED: ASPIRIN 81 MG CHEWABLE TABLETS PO SCH (10:00)
[2020-01-15 10:18] LABS: INR 0.94 (0.83-1.09); PROTHROMBIN TIME (PATIENT) 11.1 SEC (9.7-13.0)
[2020-01-15] MEDS: BUDESONIDE/FORMETEROL FUMARATE 160/4.5 mcg INHALER IH SCH ×2 (11:33→22:46)
[2020-01-15] MEDS: metoPROLOL SUCCINATE 25 MG TAB.SR.24H (FP) PO SCH (11:34)
--- NOTE | 2020-01-15 12:01 | CON.CARD ---
Consult Consult Specialty:: cardiology Reason for Consultation:: chest pain - History of Present Illness History of Present Illness: 74 y/o F with PMH HTN, HLD, CAD s/p 4 stents last several year ago 2010, seeks care at [facility], echo 10/2019 with normal EF and echodensity attached to AV felt to be artifact. ho COPD who presented to ED with L forearm fracture, since falling 2 days ago (mechanical fall while trying to sit on toilet) , and L chest pain intermittently over the last 10 years. No LOC. Chest pain is reproducible and exacerbated by palptations. Has had stress test at [facility] 8 mo ago and told was OK. Having reproducible pain now. - Past Medical History Cardio/Vascular: Yes: CAD, HTN, Hyperlipdemia - Past Surgical History Past Surgical History: Yes: Appendectomy - Alcohol/Substance Use Hx Alcohol Use: No - Smoking History Smoking history: Current every day smoker Have you smoked in the past 12 months: Yes Aproximately how many cigarettes per day: 20 - Social History Usual Living Arrangement: Alone ADL: Independent Home Medications - Allergies Allergies/Adverse Reactions: Allergies Allergy/AdvReac Type Severity Reaction Status Date / Time No Known Allergies Allergy Verified 11/15/19 12:19 - Home Medications Home Medications: Ambulatory Orders Aspirin [ASA -] 81 mg PO DAILY 03/30/14 Atorvastatin Ca [Lipitor] 40 mg PO DAILY 11/17/19 Budesonide/Formeterol Fumarate [SYMBICORT 160/4.5mcg -] 2 inh IH DAILY 11/17/19 Isosorbide Mononitrate [Imdur -] 60 mg PO DAILY 11/17/19 Lisinopril [Zestril] 2.5 mg PO DAILY 11/17/19 Albuterol Sulfate Inhaler - [Ventolin HFA Inhaler -] 1 - 2 inh PO Q4H #1 inhaler 11/21/19 Ibuprofen [Motrin -] 400 mg PO Q6H PRN tablet 11/21/19 Lidocaine 5% Patch [Lidoderm -] 1 patch TP DAILY patch 11/21/19 Lidocaine Patch Removal [Lidoderm Patch Removal] 1 each MC DAILY@2200 each Metoprolol Succinate [Toprol XL -] 25 mg PO DAILY tab.sr.24h 11/21/19 Review of Systems - Review of Systems Constitutional: reports: No Symptoms Eyes: reports: No Symptoms HENT: reports: No Symptoms Neck: reports: No Symptoms Cardiovascular: reports: Chest Pain, Shortness of Breath Respiratory: reports: Cough Gastrointestinal: reports: No Symptoms Genitourinary: reports: No Symptoms Vital Signs: Vital Signs Temperature 98.0 F 01/15/20 10:00 Pulse Rate 113 H 01/15/20 10:00 Respiratory Rate 22 H 01/15/20 10:00 Blood Pressure 109/62 01/15/20 10:00 O2 Sat by Pulse Oximetry (%) 96 01/15/20 10:00 Constitutional: Yes: Well Nourished, No Distress, Poor Hygeine, Thin Eyes: Yes: WNL, Conjunctiva Clear Neck: Yes: Supple, Trachea Midline Respiratory: Yes: CTA Bilaterally, Cough. No: Tachypnea Gastrointestinal: Yes: Normal Bowel Sounds, Soft Cardiovascular: Yes: Regular Rate and Rhythm JVD: No Carotid Bruit: No PMI: Non-Displaced Heart Sounds: Yes: S1, S2 Murmur: No: Systolic Murmur, Diastolic Murmur Edema: No - Other Data Labs, Other Data: CBC, BMP 01/15/20 06:20 01/15/20 06:20 INR, PTT INR 0.94 (0.83-1.09) 01/15/20 06:20 Troponin, BNP 01/14/20 01/14/20 17:27 23:51 Troponin I < 0.02 < 0.02 Troponin, BNP 01/14/20 01/14/20 17:27 23:51 Troponin I < 0.02 < 0.[address] T changes. Imaging - Results Chest X-ray: Report Reviewed Assessment/Plan 1. Stable CAD s/p 4 stents last several year ago 2010, echo 10/2019 with normal EF and echodensity attached to AV felt to be artifact. 2. COPD 3. Mechanical fall with L forearm fracture, 4. Chronic atypical chest pain. Her ECG is normal. Cardiac enzymes are not elevated and patient had reportedly a stress test at [facility] last year and no intervention was advised. Likely has non-cardiac CP with stable CAD. Continue medical management. Will see as needed.
--- NOTE | 2020-01-15 13:23 | PN ---
Progress Note, Physician Chief Complaint: L Ulnar Fracture Chest pain History of Present Illness: Previous notes and events reviewed awake and alert NAD complain of pain to LUE cast LUE, fingers with good capillary refill denies chest pain at present - Current Medication List Current Medications: Active Medications Acetaminophen (Ofirmev Injection -) 1,000 mg IVPB Q6H PRN PRN Reason: PAIN LEVEL 6-10 Stop: 01/16/20 03:12 Albuterol Sulfate (Ventolin Hfa Inhaler -) 2 puff IH Q4H PRN PRN Reason: SHORTNESS OF BREATH Atorvastatin Calcium (Lipitor -) 40 mg PO HS [facility] Budesonide/Formoterol Fumarate (Symbicort 160/4.5mcg -) 2 puff IH BID [facility] Last Admin: 01/15/20 11:33 Dose: 2 puff Metoprolol Succinate (Toprol Xl -) 25 mg PO DAILY [facility] Last Admin: 01/15/20 11:34 Dose: 25 mg Nitroglycerin (Nitrostat -) 0.4 mg SL Q5M PRN PRN Reason: FOR CHEST PAIN - Objective Vital Signs: Vital Signs Temperature 98.0 F 01/15/20 10:00 Pulse Rate 113 H 01/15/20 10:00 Respiratory Rate 22 H 01/15/20 10:00 Blood Pressure 109/62 01/15/20 10:00 O2 Sat by Pulse Oximetry (%) 96 01/15/20 10:00 Constitutional: Yes: No Distress, Calm Eyes: Yes: Conjunctiva Clear HENT: Yes: Atraumatic Cardiovascular: Yes: Regular Rate and Rhythm Respiratory: Yes: Regular, CTA Bilaterally Gastrointestinal: Yes: Normal Bowel Sounds, Soft Musculoskeletal: Yes: Muscle Weakness Extremities: Yes: Other (LUE cast) Edema: No Neurological: Yes: Alert, Oriented Psychiatric: Yes: Alert, Oriented Labs: CBC, BMP 01/15/20 06:20 01/15/20 06:20 INR, PTT INR 0.94 (0.83-1.09) 01/15/20 06:20 Problem List - Problems (1) Chest pain at rest Assessment/Plan: Cardiology on board troponin neg x 2 if cleared by cardiology can downgrade to med-surg Nitro prn for pain Code(s): R07.9 - CHEST PAIN, UNSPECIFIED (2) UTI (urinary tract infection) Assessment/Plan: UA shows 2+ leuks UC pending no leukocytosis afebrile Keflex x 1 dose in ER given Code(s): N39.0 - URINARY TRACT INFECTION, SITE NOT SPECIFIED Qualifiers: Urinary tract infection type: site unspecified Hematuria presence: without hematuria Qualified Code(s): N39.0 - Urinary tract infection, site not specified (3) Ulna distal fracture Assessment/Plan: Orthopedic Consult Forearm Xray shows distal ulnar diaphyseal fracture pain control LUE cast Code(s): S52.609A - UNSP FRACTURE OF LOWER END OF UNSP ULNA, INIT FOR CLOS FX Qualifiers: Encounter type: initial encounter Fracture type: closed Fracture morphology: unspecified fracture morphology Laterality: left Qualified Code( s): S52.602A - Unspecified fracture of lower end of left ulna, initial encounter for closed fracture (4) COPD (chronic obstructive pulmonary disease) Assessment/Plan: Symbicort Bronchodilator keep SpO2 >90% O2 via NC prn for SOB Code(s): J44.9 - CHRONIC OBSTRUCTIVE PULMONARY DISEASE, UNSPECIFIED (5) Hyperlipidemia Assessment/Plan: Atorvastatin Code(s): E78.5 - HYPERLIPIDEMIA, UNSPECIFIED Qualifiers: Hyperlipidemia type: pure hypercholesterolemia Qualified Code(s): E78.00 - Pure hypercholesterolemia, unspecified; E78.0 - Pure hypercholesterolemia (6) Hypertension Assessment/Plan: Metoprolol low Na diet Code(s): I10 - ESSENTIAL (PRIMARY) HYPERTENSION Qualifiers: Hypertension type: essential hypertension Qualified Code(s): I10 - Essential (primary) hypertension (7) Fall Assessment/Plan: PT Fall Precaution Forearm Xray shows distal ulnar diaphyseal fracture L Elbow Xray shows no evidence of fracture, subluxation, effusion L Wrist XRay shows distal ulnar diaphyseal fracture, degenerative changes with no evidence of fracture of intrinsic bones of the wrist Head CT scan shows chronic changes with no evidence of acute intracrnial process C-spine CT scan shows minimal degenerative changes with no evidence of acute osseous injury Code(s): W19.XXXA - UNSPECIFIED FALL, INITIAL ENCOUNTER Assessment/Plan see problem list dvt ppx
--- NOTE | 2020-01-15 15:56 | CONSULT ---
Consult - text type - Consultation Consultation Note: ORTHOPEDIC SURGERY CONSULTATION NOTE Department of Orthopedic Surgery HISTORY OF PRESENT ILLNESS Ms. Martin is a 74 year old right hand dominant female with PMH HTN, HLD, CAD s /p 4 stents, COPD who presented to ED with complaint of L forearm pain since falling 2 days ago and L chest pain intermittently over the last 10 years. The orthopedic service was consulted for a left distal ulna fracture. The injury occurred after a mechanical fall while in the bathroom The patient notes pain and swelling in her distal forearm and pain, which improves with rest and worsens with movement. Denies any other injuries. Denies numbness, tingling or other constitutional complaints. Endorses tobacco use, Denies drug use, alcohol abuse. The patient uses no assistive devices at baseline. FAMILY HISTORY non-contributory REVIEW OF SYMPTOMS A twelve-point review of systems was performed and was negative except as noted in HPI. PHYSICAL EXAM Constitutional: Alert and oriented to person, place, and time. Appears well- developed and well-nourished. No acute distress, appropriate mood and affect. Right Upper Extremity: Skin warm, dry, and intact; no lesions, rashes or ulcers noted. Muscle mass equal and symmetric to contralateral side. No atrophy noted. No masses or effusions noted. No tenderness to palpation all joints; nontender throughout rest of extremity. Full passive and active ROM, free from pain. Joints stable with no pathologic laxity. M/R/U/MSK/AX motor intact; SILT distally; 2+ radial pulses; Cap refill brisk. Tone and reflexes normal. Left Upper Extremity: Skin warm, dry, and intact; no lesions, rashes or ulcers noted. Muscle mass equal and symmetric to contralateral side. No atrophy noted. No masses or effusions noted. Tender to palpation at the distal ulna, with ecchymosis over the distal ulna with tenderness and swelling; nontender throughout rest of extremity. Full passive and active ROM of the left fingers, elbow, and shoulder, free from pain. LROM at left wrist secondary to pain over the ulna. Joints stable with no pathologic laxity. M/R/U/MSK/AX motor intact; SILT distally; 2+ radial pulses; Cap refill brisk. Tone and reflexes normal. Right Lower Extremity: Skin warm, dry, and intact; no lesions, rashes or ulcers noted. Muscle mass equal and symmetric to contralateral side. No atrophy noted. No masses or effusions noted. No tenderness to palpation all joints; Able to SLR ; Negative Log Roll; nontender throughout rest of extremity. No cords or calf tenderness No significant calf/ankle edema. Full passive and active ROM, free from pain. Joints stable with no pathologic laxity. EHL/TA/GS motor intact; SILT distally; 2+ DP pulses; Cap refill brisk. Tone and reflexes normal. Left Lower Extremity: Skin warm, dry, and intact; no lesions, rashes or ulcers noted. Muscle mass equal and symmetric to contralateral side. No atrophy noted. No masses or effusions noted. No tenderness to palpation all joints; Able to SLR ; Negative Log Roll; nontender throughout rest of extremity. No cords or calf tenderness No significant calf/ankle edema. Full passive and active ROM, free from pain. Joints stable with no pathologic laxity. EHL/TA/GS motor intact; SILT distally; 2+ DP pulses; Cap refill brisk. Tone and reflexes normal. Active Problems Problem Status Category Onset Chest pain at rest Acute Medical Fall Acute Medical UTI (urinary tract infection) Acute Medical Ulna distal fracture Acute Medical Past Medical History Cardio/Vascular CAD,HTN,Hyperlipdemia Past Surgical History Past Surgical History Appendectomy Social History Smoking history Current every day smoker Aproximately how many 20 cigarettes per day Hx Alcohol Use No Usual Living Arrangement Alone ADL Independent Allergies Allergy/AdvReac Type Severity Reaction Status Date / Time No Known Allergies Allergy Verified 11/15/19 12:19 Active Medications Generic Name Dose Route Start Last Admin Trade Name Freq PRN Reason Stop Dose Admin Acetaminophen 1,000 mg 01/15/20 03:12 Ofirmev Injection - IVPB 01/16/20 03:12 Q6H PRN PAIN LEVEL 6-10 Albuterol Sulfate 2 puff 01/15/20 01:17 Ventolin Hfa Inhaler - IH Q4H PRN SHORTNESS OF BREATH Atorvastatin Calcium 40 mg 01/15/20 22:00 Lipitor - PO HS [facility] Budesonide/Formoterol Fumarate 2 puff 01/15/20 10:00 01/15/20 11:33 Symbicort 160/4.5mcg - IH 2 puff BID [facility] Administration Metoprolol Succinate 25 mg 01/15/20 10:00 01/15/20 11:34 Toprol Xl - PO 25 mg DAILY [facility] Administration Nitroglycerin 0.4 mg 01/15/20 04:14 Nitrostat - SL Q5M PRN FOR CHEST PAIN Vital Signs (last) Temp Pulse Resp BP Pulse Ox 97.4 F L 104 H 22 H 115/62 96 01/15/20 14:00 01/15/20 14:00 01/15/20 14:00 01/15/20 14:00 01/15/20 14:00 Intake and Output 01/13/20 01/14/20 01/15/20 23:59 23:59 23:59 Other: Voiding Method Toilet Weight 170 lb Height 5 ft 4 in Body Mass Index (BMI) 29.2 Weight Measurement Method Est/Stated by Patient Laboratory 01/15/20 06:20 01/15/20 06:20 PT with INR 11.10 SEC (9.7-13.0) 01/15/20 06:20 PTT (Actin FS) 32.3 SECONDS (25.2-36.5) 01/15/20 06:20 IMAGING I personally reviewed all radiographs, CT, and other imaging. They demonstrate a distal left ulna fracture. ASSESSMENT AND PLAN Ms. Martin is a 74 year old female presenting status post mechanical fall with a left sided distal ulna fracture. We have reviewed the imaging and clinical findings in detail, as well as their potential implications. After appropriate informed discussion, I applied a slight reduction manuever and the patient was placed in a well-padded ulnar gutter splint. Patient was instructed regarding: non weight bearing on fractured side. signs and symptoms of compartment syndrome and need to seek immediate care should new onset numbness, tingling, or significantly increasing pain occur. maintain strict elevation above the level of the heart for the next 3-4 days. keeping the splint clean and dry. avoiding NSAID medications. - No further orthopedic intervention at this time All questions were answered. Thank you for involving our team in the care of this patient. Please have patient follow up in our office in 1-2 weeks.
[2020-01-15] MEDS ORDERED: ACETAMINOPHEN INJECTION 100 ML IVPB ONE (17:56)
[2020-01-15] MEDS: ATORVASTATIN CA 40 MG TABLET (FP) PO SCH (21:31)
[2020-01-16 07:48] LABS: HEMATOCRIT 34.6 % (32.4-45.2); HEMOGLOBIN 11.5 GM/dL (10.7-15.3); MCH 33.8 pg (25.7-33.7); MCHC 33.3 g/dl (32.0-36.0); MEAN CELL VOLUME 101.6 fl (80-96); MEAN PLT VOLUME 8.7 fl (7.5-11.1); PLATELET COUNT 287 K/MM3 (134-434); RBC 3.41 M/mm3 (3.60-5.2); WHITE BLOOD COUNT 6.2 K/mm3 (4.0-10.0)
[2020-01-16 08:21] LABS: ALBUMIN 3.2 g/dl (3.4-5.0); BILIRUBIN,TOTAL 0.8 mg/dL (0.2-1); BLOOD UREA NITROGEN 24.9 mg/dL (7-18); CALCIUM 9.2 mg/dL (8.5-10.1); CREATININE 1.2 mg/dL (0.55-1.3); POTASSIUM 4.7 mmol/L (3.5-5.1); TOT PROT 6.2 g/dl (6.4-8.2)
--- NOTE | 2020-01-16 09:30 | PN ---
Progress Note, Physician - Current Medication List Current Medications: Active Medications Albuterol Sulfate (Ventolin Hfa Inhaler -) 2 puff IH Q4H PRN PRN Reason: SHORTNESS OF BREATH Atorvastatin Calcium (Lipitor -) 40 mg PO HS [facility] Last Admin: 01/15/20 21:31 Dose: 40 mg Budesonide/Formoterol Fumarate (Symbicort 160/4.5mcg -) 2 puff IH BID [facility] Last Admin: 01/15/20 22:46 Dose: 2 puff Metoprolol Succinate (Toprol Xl -) 25 mg PO DAILY [facility] Last Admin: 01/15/20 11:34 Dose: 25 mg Nitroglycerin (Nitrostat -) 0.4 mg SL Q5M PRN PRN Reason: FOR CHEST PAIN - Objective Vital Signs: Vital Signs Temperature 97.7 F 01/15/20 22:00 Pulse Rate 77 01/16/20 05:53 Respiratory Rate 20 01/16/20 05:53 Blood Pressure 134/60 01/16/20 05:53 O2 Sat by Pulse Oximetry (%) 99 01/16/20 05:53 Cardiovascular: Yes: Regular Rate and Rhythm Respiratory: Yes: Regular, CTA Bilaterally Gastrointestinal: Yes: Normal Bowel Sounds, Soft Extremities: Yes: Other (splint on left forearm) Labs: CBC, BMP 01/16/20 07:18 01/16/20 07:18 INR, PTT INR 0.94 (0.83-1.09) 01/15/20 06:20 Assessment/Plan - Problems (1) Chest pain at rest Assessment/Plan: Cardiology on board troponin neg x 2 cardiology consult noted Nitro prn for pain Code(s): R07.9 - CHEST PAIN, UNSPECIFIED (2) UTI (urinary tract infection) Assessment/Plan: UA shows 2+ leuks UC pending no leukocytosis afebrile Keflex x 1 dose in ER given Code(s): N39.0 - URINARY TRACT INFECTION, SITE NOT SPECIFIED Qualifiers: Urinary tract infection type: site unspecified Hematuria presence: without hematuria Qualified Code(s): N39.0 - Urinary tract infection, site not specified (3) Ulna distal fracture Assessment/Plan: Orthopedic Consult Forearm Xray shows distal ulnar diaphyseal fracture pain control LUE cast Code(s): S52.609A - UNSP FRACTURE OF LOWER END OF UNSP ULNA, INIT FOR CLOS FX Qualifiers: Encounter type: initial encounter Fracture type: closed Fracture morphology: unspecified fracture morphology Laterality: left Qualified Code( s): S52.602A - Unspecified fracture of lower end of left ulna, initial encounter for closed fracture (4) COPD (chronic obstructive pulmonary disease) Assessment/Plan: Symbicort Bronchodilator keep SpO2 >90% O2 via NC prn for SOB Code(s): J44.9 - CHRONIC OBSTRUCTIVE PULMONARY DISEASE, UNSPECIFIED (5) Hyperlipidemia Assessment/Plan: Atorvastatin Code(s): E78.5 - HYPERLIPIDEMIA, UNSPECIFIED Qualifiers: Hyperlipidemia type: pure hypercholesterolemia Qualified Code(s): E78.00 - Pure hypercholesterolemia, unspecified; E78.0 - Pure hypercholesterolemia (6) Hypertension Assessment/Plan: Metoprolol low Na diet Code(s): I10 - ESSENTIAL (PRIMARY) HYPERTENSION Qualifiers: Hypertension type: essential hypertension Qualified Code(s): I10 - Essential (primary) hypertension (7) Fall Assessment/Plan: PT Fall Precaution Forearm Xray shows distal ulnar diaphyseal fracture L Elbow Xray shows no evidence of fracture, subluxation, effusion L Wrist XRay shows distal ulnar diaphyseal fracture, degenerative changes with no evidence of fracture of intrinsic bones of the wrist Head CT scan shows chronic changes with no evidence of acute intracrnial process C-spine CT scan shows minimal degenerative changes with no evidence of acute osseous injury Code(s): W19.XXXA - UNSPECIFIED FALL, INITIAL ENCOUNTER
--- NOTE | 2020-01-16 09:51 | EKG ---
Test Reason : Blood Pressure : / mmHG Vent. Rate : 087 BPM Atrial Rate : 087 BPM P-R Int : 140 ms QRS Dur : 084 ms QT Int : 378 ms P-R-T Axes : 064 056 010 degrees QTc Int : 454 ms SINUS RHYTHM WITH OCCASIONAL PREMATURE VENTRICULAR COMPLEXES POSSIBLE LEFT ATRIAL ENLARGEMENT LEFT VENTRICULAR HYPERTROPHY ABNORMAL ECG WHEN COMPARED WITH ECG OF 15-NOV-2019 12:18, PREMATURE VENTRICULAR COMPLEXES ARE NOW PRESENT T WAVE AMPLITUDE HAS INCREASED IN ANTERIOR LEADS Confirmed by Polo Jordan ([id number]) on 01/16/2020 9:50:52 AM Referred By: Confirmed By:Polo Jordan
[2020-01-16] MEDS: BUDESONIDE/FORMETEROL FUMARATE 160/4.5 mcg INHALER IH SCH ×2 (10:46→21:46)
[2020-01-16] MEDS: POLYETHYLENE GLYCOL 3350 119 GM BTL PO SCH ×2 (10:54→21:46)
[2020-01-16] MEDS: metoPROLOL SUCCINATE 25 MG TAB.SR.24H (FP) PO SCH (11:34)
[2020-01-16] MEDS ORDERED: BISACODYL 5 MG TABLET.DR (FP) PO ONE (15:30)
[2020-01-16] MEDS: ACETAMINOPHEN 325 MG TABLET (FP) PO PRN (15:45)
[2020-01-16] MEDS: ATORVASTATIN CA 40 MG TABLET (FP) PO SCH (21:46)
[2020-01-17] MEDS: ACETAMINOPHEN 325 MG TABLET (FP) PO PRN ×2 (08:39→14:07)
[2020-01-17] MEDS: BUDESONIDE/FORMETEROL FUMARATE 160/4.5 mcg INHALER IH SCH ×2 (10:13→22:39)
[2020-01-17] MEDS: POLYETHYLENE GLYCOL 3350 119 GM BTL PO SCH ×2 (10:15→22:34)
[2020-01-17] MEDS: metoPROLOL SUCCINATE 25 MG TAB.SR.24H (FP) PO SCH (10:15)
--- NOTE | 2020-01-17 12:57 | CONSULT ---
Consult Consult Specialty:: PM&R Dr Maguire for Dr Bautista - History of Present Illness Chief Complaint: L wrist/ forearm pain History of Present Illness: This is a 74 year old woman with a medical history of CAD s/p stents x4, HTN, HLD, COPD, who presented to the ED 01/14/2020 following a fall 2 days LAP HAND TOOL. XR showed L distal ulnar fx, which Ortho placed in gutter splint, NWB. She also noted chest pain with pressing on chest and with deep breaths; CXR was negative for acute pathology including rib fractures. CT head showed diffuse generalized atrophy without acute pathology; CT cervical spine showed minimal C2-3 and C5-6 DJD without acute pathology. Cardiology was consulted, who felt her chest pain was not cardiac in origin. She was seen by PT, and on 01/17/2020 she was Supervision to Contact Guard in Transfers, and ambulated 70 feet Contact Guard with Rolling Walker. Physiatry is being consulted for further recommendations. - Past Medical History Cardio/Vascular: Yes: CAD, HTN, Hyperlipdemia ...: No - Past Surgical History Past Surgical History: Yes: Appendectomy - Alcohol/Substance Use Hx Alcohol Use: No - Smoking History Smoking history: Current every day smoker Have you smoked in the past 12 months: Yes Aproximately how many cigarettes per day: 20 - Social History Usual Living Arrangement: With Child (lives with daughter in apartment with 8 steps to enter) ADL: Independent (without AD) Home Medications - Allergies Allergies/Adverse Reactions: Allergies Allergy/AdvReac Type Severity Reaction Status Date / Time No Known Allergies Allergy Verified 01/15/20 19:19 - Home Medications Home Medications: Ambulatory Orders Unobtainable 01/15/20 Review of Systems Findings/Remarks: Denies fevers, chills, changes in hearing/ mood, SOB, abdominal pain, nausea, vomiting, diarrhea, muscle/ joint pain, numbness/ paresthesias. Notes resolved CP, eyes sore, constipation, occasional SELLERS; Roach in place Physical Exam Vital Signs: Vital Signs Temperature 98.2 F 01/17/20 08:30 Pulse Rate 65 01/17/20 08:30 Respiratory Rate 18 01/17/20 08:30 Blood Pressure 120/61 01/17/20 08:30 O2 Sat by Pulse Oximetry (%) 97 01/17/20 09:00 Musculoskeletal: Yes: Other (calm elderly F sitting in chair NAD but fatigued, AAO x3; R shoulder flexion to 150 degrees, L shoulder flexion to 100 degrees with L EE to 25 degrees, 4+/5 RUE/ L FF/ BLE, LUE MMT not tested 2/2 NWB status; Pinprick Intact BUE/ BLE; no BLE/ LUE pitting edema, no B calf tenderness) Labs: CBC, BMP 01/16/20 07:18 01/16/20 07:18 Imaging - Results X-ray: Report Reviewed (as per HPI) Cat Scan: Report Reviewed (as per HPI) Assessment/Plan Impression: 1) Deficits mobility/ ADLs 2) Deconditioning 3) Gait abnormality 4) L distal ulnar fx following fall, now NWB LUE 5) Resolved MSK CP 6) Cervical DJD 7) Possible UTI 8) hx CAD s/p stents x4, HTN, HLD 9) hx COPD 10) L knee OA 11) Active smoker 12) No documented flu shot/ pneumovax 13) BMI WNL Recommendations: 1) PT for stretching strengthening ROM and functional mobility 2) Falls, safety precautions 3) Cardiopulmonary precautions 4) Bowel regimen: on Miralax daily, consider adding Colace up to 300mg and Senna up to 2 tabs 5) DVT ppx: off AC following fall 6) Monitor BMP given renal function 7) Smoking cessation information at discharge 8) Appreciate Ortho consult- pt NWB LUE for likely 4-6 weeks 9) Continue plan per primary team 10) Discharge planning: if dtr able to provide assistance, she may be able to return home with services, otherwise should consider short- course inpatient rehabilitation once medically stable Thank you for this referral.
[2020-01-17] MEDS ORDERED: LACTULOSE 20 GM/30 ML UDC (FOR ORAL USE ONLY) PO ONE (14:27)
[2020-01-17] MEDS ORDERED: SODIUM PHOSPHATE/NA BIPHOS 133 ML ENEMA PR ONE (14:27)
[2020-01-17] MEDS ORDERED: MAG HYDROX/AL HYDROX/SIMETH 30 ML UNIT-DOSE CUP PO ONE (14:29)
--- NOTE | 2020-01-17 14:55 | EKG ---
Test Reason : Blood Pressure : / mmHG Vent. Rate : 071 BPM Atrial Rate : 071 BPM P-R Int : 140 ms QRS Dur : 090 ms QT Int : 392 ms P-R-T Axes : 056 058 025 degrees QTc Int : 425 ms NORMAL SINUS RHYTHM MINIMAL VOLTAGE CRITERIA FOR LVH, MAY BE NORMAL VARIANT BORDERLINE ECG WHEN COMPARED WITH ECG OF 14-JAN-2020 18:12, PREMATURE VENTRICULAR COMPLEXES ARE NO LONGER PRESENT Confirmed by Chino Myers MD ([id number]) on 01/17/2020 2:54:47 PM Referred By: AKHIL PLATT Confirmed By:Chino Myers MD
--- NOTE | 2020-01-17 15:28 | PN ---
Progress Note, Physician Chief Complaint: s/p fall at home on left forearm, sustaining fracture, left chest wall pain History of Present Illness: 74 year old female with PMH CAD, HTN, CAD, COPD presented to the ED s/ p fall on left side sustaining left distal ulnar fracture. was casted by orthopedist, seen and cleared by cardiology. - Current Medication List Current Medications: Active Medications Acetaminophen (Tylenol -) 650 mg PO Q4H PRN PRN Reason: PAIN 1-3 Last Admin: 01/17/20 14:07 Dose: 650 mg Albuterol Sulfate (Ventolin Hfa Inhaler -) 2 puff IH Q4H PRN PRN Reason: SHORTNESS OF BREATH Atorvastatin Calcium (Lipitor -) 40 mg PO HS [facility] Last Admin: 01/16/20 21:46 Dose: 40 mg Budesonide/Formoterol Fumarate (Symbicort 160/4.5mcg -) 2 puff IH BID [facility] Last Admin: 01/17/20 10:13 Dose: 2 puff Lidocaine (Lidoderm Patch -) 1 patch TP DAILY [facility] Metoprolol Succinate (Toprol Xl -) 25 mg PO DAILY [facility] Last Admin: 01/17/20 10:15 Dose: 25 mg Miscellaneous (Lidoderm Patch Removal) 1 each [facility] DAILY@2200 [facility] Nitroglycerin (Nitrostat -) 0.4 mg SL Q5M PRN PRN Reason: FOR CHEST PAIN Polyethylene Glycol (Miralax (For Daily Use) -) 17 gm PO BID [facility] Last Admin: 01/17/20 10:15 Dose: 17 grams - Objective Vital Signs: Vital Signs Temperature 98 F 01/17/20 14:42 Pulse Rate 71 01/17/20 14:42 Respiratory Rate 20 01/17/20 14:42 Blood Pressure 109/59 L 01/17/20 14:42 O2 Sat by Pulse Oximetry (%) 97 01/17/20 09:00 Constitutional: Yes: Mild Distress HENT: Yes: Atraumatic, Normocephalic Neck: Yes: Supple Cardiovascular: Yes: Regular Rate and Rhythm Respiratory: Yes: Regular, CTA Bilaterally Gastrointestinal: Yes: Normal Bowel Sounds Genitourinary: Yes: Queen Present Musculoskeletal: Yes: Muscle Pain, Muscle Weakness Neurological: Yes: Alert, Oriented Labs: CBC, BMP 01/16/20 07:18 01/16/20 07:18 INR, PTT INR 0.94 (0.83-1.09) 01/15/20 06:20 Problem List - Problems (1) Constipation Assessment/Plan: given dulcolax without relief lactulose x1 fleet x1 [place] Code(s): K59.00 - CONSTIPATION, UNSPECIFIED (2) Urinary retention Assessment/Plan: remove queen trial of void Code(s): R33.9 - RETENTION OF URINE, UNSPECIFIED (3) Chest pain at rest Assessment/Plan: cardiology consult appreciated complaining of chest pain stat trop, ekg Code(s): R07.9 - CHEST PAIN, UNSPECIFIED (4) Fall Assessment/Plan: Physiatry eval appreciated Code(s): W19.XXXA - UNSPECIFIED FALL, INITIAL ENCOUNTER (5) Ulna distal fracture Assessment/Plan: ortho consult appreciated casted pain control ot/pt f/u on dc Code(s): S52.609A - UNSP FRACTURE OF LOWER END OF UNSP ULNA, INIT FOR CLOS FX Qualifiers: Encounter type: initial encounter Fracture type: closed Fracture morphology: unspecified fracture morphology Laterality: left Qualified Code( s): S52.602A - Unspecified fracture of lower end of left ulna, initial encounter for closed fracture (6) COPD (chronic obstructive pulmonary disease) Assessment/Plan: cont home meds Code(s): J44.9 - CHRONIC OBSTRUCTIVE PULMONARY DISEASE, UNSPECIFIED (7) Coronary artery disease Assessment/Plan: cont home meds Code(s): I25.10 - ATHSCL HEART DISEASE OF [place] CORONARY ARTERY W/O ANG PCTRS Qualifiers: Coronary Disease-Associated Artery/Lesion type: [place] artery [place] vs. transplanted heart: [place] heart Associated angina: without angina Qualified Code(s): I25.10 - Atherosclerotic heart disease of [place] coronary artery without angina pectoris (8) Hyperlipidemia Assessment/Plan: cont home meds Code(s): E78.5 - HYPERLIPIDEMIA, UNSPECIFIED Qualifiers: Hyperlipidemia type: pure hypercholesterolemia Qualified Code(s): E78.00 - Pure hypercholesterolemia, unspecified; E78.0 - Pure hypercholesterolemia (9) Hypertension Assessment/Plan: cont home meds Code(s): I10 - ESSENTIAL (PRIMARY) HYPERTENSION Qualifiers: Hypertension type: essential hypertension Qualified Code(s): I10 - Essential (primary) hypertension Assessment/Plan dc home pending normal ekg, trop, and passes trial of void discussed with case management
[2020-01-17] MEDS ORDERED: PROCHLORPERAZINE INJECTION 10 MG/2 ML VIAL IM ONE (17:35)
[2020-01-17] MEDS ORDERED: BISACODYL 10 MG SUPP.RECT RC PRN (17:36)
[2020-01-17] MEDS: ATORVASTATIN CA 40 MG TABLET (FP) PO SCH (22:34)
[2020-01-18] MEDS: ACETAMINOPHEN 325 MG TABLET (FP) PO PRN ×4 (00:14→23:47)
[2020-01-18 07:13] LABS: BASO % 0.7 % (0-2.0); HEMATOCRIT 35.1 % (32.4-45.2); HEMOGLOBIN 11.8 GM/dL (10.7-15.3); LYMPH % 26.7 % (8-40); MCH 33.6 pg (25.7-33.7); MCHC 33.5 g/dl (32.0-36.0); MEAN CELL VOLUME 100.4 fl (80-96); MEAN PLT VOLUME 8.9 fl (7.5-11.1); MONO % 8.7 % (3.8-10.2); NEUT % 61.9 % (42.8-82.8); PLATELET COUNT 282 K/MM3 (134-434); RDW 13.7 % (11.6-15.6); WHITE BLOOD COUNT 7.2 K/mm3 (4.0-10.0)
[2020-01-18 07:49] LABS: ALBUMIN 3.3 g/dl (3.4-5.0); BILIRUBIN,TOTAL 1.1 mg/dL (0.2-1); BLOOD UREA NITROGEN 21.3 mg/dL (7-18); CALCIUM 8.7 mg/dL (8.5-10.1); CREATININE 1.1 mg/dL (0.55-1.3); POTASSIUM 4.7 mmol/L (3.5-5.1); TOT PROT 6.5 g/dl (6.4-8.2)
[2020-01-18] MEDS: LIDOCAINE 5% TOPICAL PATCH TP SCH (09:22)
[2020-01-18] MEDS: metoPROLOL SUCCINATE 25 MG TAB.SR.24H (FP) PO SCH (09:26)
[2020-01-18] MEDS: BUDESONIDE/FORMETEROL FUMARATE 160/4.5 mcg INHALER IH SCH ×2 (09:27→22:02)
--- NOTE | 2020-01-18 10:35 | PN ---
Progress Note, Physician Chief Complaint: s/p fall at home on left forearm, sustaining fracture, left chest wall pain - Current Medication List Current Medications: Active Medications Acetaminophen (Tylenol -) 650 mg PO Q4H PRN PRN Reason: PAIN 1-3 Last Admin: 01/18/20 09:20 Dose: 650 mg Albuterol Sulfate (Ventolin Hfa Inhaler -) 2 puff IH Q4H PRN PRN Reason: SHORTNESS OF BREATH Atorvastatin Calcium (Lipitor -) 40 mg PO HS [facility] Last Admin: 01/17/20 22:34 Dose: 40 mg Bisacodyl (Dulcolax Suppository -) 10 mg RC PRN PRN PRN Reason: CONSTIPATION Budesonide/Formoterol Fumarate (Symbicort 160/4.5mcg -) 2 puff IH BID [facility] Last Admin: 01/18/20 09:27 Dose: 2 puff Lidocaine (Lidoderm Patch -) 1 patch TP DAILY [facility] Last Admin: 01/18/20 09:22 Dose: 1 patch Metoprolol Succinate (Toprol Xl -) 25 mg PO DAILY [facility] Last Admin: 01/18/20 09:26 Dose: 25 mg Miscellaneous (Lidoderm Patch Removal) 1 each MC DAILY@2200 [facility] Nitroglycerin (Nitrostat -) 0.4 mg SL Q5M PRN PRN Reason: FOR CHEST PAIN Polyethylene Glycol (Miralax (For Daily Use) -) 17 gm PO BID [facility] Last Admin: 01/17/20 22:34 Dose: 17 grams - Objective Vital Signs: Vital Signs Temperature 98.3 F 01/18/20 06:07 Pulse Rate 64 01/18/20 06:07 Respiratory Rate 18 01/18/20 06:07 Blood Pressure 112/57 L 01/18/20 06:07 O2 Sat by Pulse Oximetry (%) 97 01/17/20 21:00 Constitutional: Yes: Well Nourished, No Distress, Calm Cardiovascular: Yes: Regular Rate and Rhythm Respiratory: Yes: Regular Gastrointestinal: Yes: Normal Bowel Sounds, Soft Genitourinary: Yes: WNL Musculoskeletal: Yes: Muscle Weakness, Other (Left arm pain) Extremities: Yes: WNL Edema: No Peripheral Pulses WNL: Yes Neurological: Yes: Alert, Oriented Psychiatric: Yes: Alert, Oriented Labs: CBC, BMP 01/18/20 06:40 01/18/20 06:40 INR, PTT INR 0.94 (0.83-1.09) 01/15/20 06:20 Assessment/Plan (1) Constipation Assessment/Plan: -Received fleet enema yesterday -Increase miralax to TID -Continue dulcolax Code(s): K59.00 - CONSTIPATION, UNSPECIFIED (2) Urinary retention Assessment/Plan: -voiding spontaneously Code(s): R33.9 - RETENTION OF URINE, UNSPECIFIED (3) Chest pain at rest Assessment/Plan: -cardiology consult appreciated -Left chest wall pain, intermittent follows respiratory pattern- is musculoskeletal -Cardiac work up is negative -Tylenol PRN for pain 1-5 -Tramadol for pain 6-10 Code(s): R07.9 - CHEST PAIN, UNSPECIFIED (4) Fall Assessment/Plan: -Physiatry eval appreciated -Pt agrees to [facility] -D/C personal financial planner notified Code(s): W19.XXXA - UNSPECIFIED FALL, INITIAL ENCOUNTER (5) Ulna distal fracture Assessment/Plan: -Ortho consult appreciated -Casted -pain control with acetaminophen and tramadol -Physical therapy -Follow up with orthopedic surgery [facility] in 2 weeks. Code(s): S52.609A - UNSP FRACTURE OF LOWER END OF UNSP ULNA, INIT FOR CLOS FX Qualifiers: Encounter type: initial encounter Fracture type: closed Fracture morphology: unspecified fracture morphology Laterality: left Qualified Code( s): S52.602A - Unspecified fracture of lower end of left ulna, initial encounter for closed fracture (6) COPD (chronic obstructive pulmonary disease) Assessment/Plan: -Continue home meds Code(s): J44.9 - CHRONIC OBSTRUCTIVE PULMONARY DISEASE, UNSPECIFIED (7) Coronary artery disease Assessment/Plan: -Continue home meds -Cardiology on board Code(s): I25.10 - ATHSCL HEART DISEASE OF [place] CORONARY ARTERY W/O ANG PCTRS Qualifiers: Coronary Disease-Associated Artery/Lesion type: [place] artery [place] vs. transplanted heart: [place] heart Associated angina: without angina Qualified Code(s): I25.10 - Atherosclerotic heart disease of [place] coronary artery without angina pectoris D/C to [facility] when authorization is obtained
[2020-01-18] MEDS: POLYETHYLENE GLYCOL 3350 119 GM BTL PO SCH ×3 (10:36→22:02)
[2020-01-18] MEDS: ATORVASTATIN CA 40 MG TABLET (FP) PO SCH (22:02)
[2020-01-18] MEDS: LIDOCAINE PATCH REMOVAL MC SCH (22:12)
[2020-01-19] MEDS: POLYETHYLENE GLYCOL 3350 119 GM BTL PO SCH ×3 (06:15→21:02)
--- NOTE | 2020-01-19 08:05 | DS ---
Physical Examination Vital Signs: Vital Signs Temperature 98.3 F 01/19/20 06:00 Pulse Rate 68 01/19/20 06:00 Respiratory Rate 18 01/19/20 06:00 Blood Pressure 153/59 L 01/19/20 06:00 O2 Sat by Pulse Oximetry (%) 95 01/18/20 21:00 Cardiovascular: Yes: Regular Rate and Rhythm Respiratory: Yes: Regular, CTA Bilaterally Gastrointestinal: Yes: Normal Bowel Sounds, Soft Labs: CBC, BMP 01/18/20 06:40 01/18/20 06:40 Discharge Summary Problems reviewed: Yes Reason For Visit: URINARY TRACT INFECTION/ CHEST PAIN Current Active Problems Chest pain at rest (Acute) Constipation (Acute) Fall (Acute) UTI (urinary tract infection) (Acute) Ulna distal fracture (Acute) Urinary retention (Acute) Hospital Course: (1) Constipation Assessment/Plan: -Received fleet enema yesterday -Increase miralax to TID -Continue dulcolax Code(s): K59.00 - CONSTIPATION, UNSPECIFIED (2) Urinary retention Assessment/Plan: -voiding spontaneously Code(s): R33.9 - RETENTION OF URINE, UNSPECIFIED (3) Chest pain at rest Assessment/Plan: -cardiology consult appreciated -Left chest wall pain, intermittent follows respiratory pattern- is musculoskeletal -Cardiac work up is negative -Tylenol PRN for pain 1-5 -Tramadol for pain 6-10 Code(s): R07.9 - CHEST PAIN, UNSPECIFIED (4) Fall Assessment/Plan: -Physiatry eval appreciated -Pt agrees to [facility] -D/C digital media planner notified Code(s): W19.XXXA - UNSPECIFIED FALL, INITIAL ENCOUNTER (5) Ulna distal fracture Assessment/Plan: -Ortho consult appreciated -Casted -pain control with acetaminophen and tramadol -Physical therapy -Follow up with orthopedic surgery [facility] in 2 weeks. Code(s): S52.609A - UNSP FRACTURE OF LOWER END OF UNSP ULNA, INIT FOR CLOS FX Qualifiers: Encounter type: initial encounter Fracture type: closed Fracture morphology: unspecified fracture morphology Laterality: left Qualified Code( s): S52.602A - Unspecified fracture of lower end of left ulna, initial encounter for closed fracture (6) COPD (chronic obstructive pulmonary disease) Assessment/Plan: -Continue home meds Code(s): J44.9 - CHRONIC OBSTRUCTIVE PULMONARY DISEASE, UNSPECIFIED (7) Coronary artery disease Assessment/Plan: -Continue home meds -Cardiology on board Code(s): I25.10 - ATHSCL HEART DISEASE OF [place] CORONARY ARTERY W/O ANG PCTRS Qualifiers: Coronary Disease-Associated Artery/Lesion type: [place] artery [place] vs. transplanted heart: [place] heart Associated angina: without angina Qualified Code(s): I25.10 - Atherosclerotic heart disease of [place] coronary artery without angina pectoris D/C to [facility] when authorization is obtained Condition: Stable - Instructions Disposition: RESIDENTIAL FACILITY - Home Medications Comprehensive Discharge Medication List: Ambulatory Orders Budesonide/Formeterol Fumarate [SYMBICORT 160/4.5mcg -] 2 inh PO BID 01/18/20 Isosorbide Mononitrate 20 mg PO TID MDD 60mg 01/18/20 Metoprolol Succinate [Toprol Xl] 25 mg PO DAILY MDD 25mg 01/18/20 Tramadol HCl [Ultram] 50 mg PO TID 01/18/20 Atorvastatin Ca [Lipitor] 40 mg PO HS tablet 01/19/20 Bisacodyl Suppository [Dulcolax Suppository -] 10 mg RC PRN PRN supp.rect 01/19 Lidocaine 5% Patch [Lidoderm -] 1 patch TP DAILY patch 01/19/20 Polyethylene Glycol 3350 [Miralax 119 gm Btl -] 17 gm PO TID bottle 01/19/20
[2020-01-19] MEDS: metoPROLOL SUCCINATE 25 MG TAB.SR.24H (FP) PO SCH (09:19)
[2020-01-19] MEDS: LIDOCAINE 5% TOPICAL PATCH TP SCH (09:19)
[2020-01-19] MEDS: ACETAMINOPHEN 325 MG TABLET (FP) PO PRN (09:19)
[2020-01-19] MEDS: BUDESONIDE/FORMETEROL FUMARATE 160/4.5 mcg INHALER IH SCH ×2 (09:20→21:02)
[2020-01-19] MEDS: traMADol HCL 50 MG TABLET PO PRN ×2 (10:30→20:31)
[2020-01-19] MEDS: ATORVASTATIN CA 40 MG TABLET (FP) PO SCH (21:02)
[2020-01-19] MEDS: LIDOCAINE PATCH REMOVAL MC SCH (21:03)
[2020-01-20 06:12] VITALS: TEMP 98.1
[2020-01-20] MEDS: POLYETHYLENE GLYCOL 3350 119 GM BTL PO SCH (06:19)
[2020-01-20] MEDS: ACETAMINOPHEN 325 MG TABLET (FP) PO PRN (08:34)
[2020-01-20 08:48] VITALS: BP 105/56; PULSE 67
[2020-01-20] MEDS: metoPROLOL SUCCINATE 25 MG TAB.SR.24H (FP) PO SCH (09:03)
[2020-01-20] MEDS: traMADol HCL 50 MG TABLET PO PRN (09:03)
[2020-01-20] MEDS: LIDOCAINE 5% TOPICAL PATCH TP SCH (09:04)
[2020-01-20] MEDS: BUDESONIDE/FORMETEROL FUMARATE 160/4.5 mcg INHALER IH SCH (09:05)
--- NOTE | 2020-01-20 09:06 | DS ---
Physical Examination Vital Signs: Vital Signs Temperature 98.1 F 01/20/20 08:48 Pulse Rate 67 01/20/20 08:48 Respiratory Rate 16 01/20/20 08:48 Blood Pressure 105/56 L 01/20/20 08:48 O2 Sat by Pulse Oximetry (%) 99 01/19/20 21:00 Cardiovascular: Yes: Regular Rate and Rhythm Respiratory: Yes: Regular, CTA Bilaterally Gastrointestinal: Yes: Normal Bowel Sounds, Soft Labs: CBC, BMP 01/18/20 06:40 01/18/20 06:40 Discharge Summary Problems reviewed: Yes Reason For Visit: URINARY TRACT INFECTION/ CHEST PAIN Current Active Problems Chest pain at rest (Acute) Constipation (Acute) Fall (Acute) UTI (urinary tract infection) (Acute) Ulna distal fracture (Acute) Urinary retention (Acute) Hospital Course: (1) Constipation Assessment/Plan: -Received fleet enema yesterday -Increase miralax to TID -Continue dulcolax Code(s): K59.00 - CONSTIPATION, UNSPECIFIED (2) Urinary retention Assessment/Plan: -voiding spontaneously Code(s): R33.9 - RETENTION OF URINE, UNSPECIFIED (3) Chest pain at rest Assessment/Plan: -cardiology consult appreciated -Left chest wall pain, intermittent follows respiratory pattern- is musculoskeletal -Cardiac work up is negative -Tylenol PRN for pain 1-5 -Tramadol for pain 6-10 Code(s): R07.9 - CHEST PAIN, UNSPECIFIED (4) Fall Assessment/Plan: -Physiatry eval appreciated -Pt agrees to [facility] -D/C kit planner notified Code(s): W19.XXXA - UNSPECIFIED FALL, INITIAL ENCOUNTER (5) Ulna distal fracture Assessment/Plan: -Ortho consult appreciated -Casted -pain control with acetaminophen and tramadol -Physical therapy -Follow up with orthopedic surgery [facility] in 2 weeks. Code(s): S52.609A - UNSP FRACTURE OF LOWER END OF UNSP ULNA, INIT FOR CLOS FX Qualifiers: Encounter type: initial encounter Fracture type: closed Fracture morphology: unspecified fracture morphology Laterality: left Qualified Code( s): S52.602A - Unspecified fracture of lower end of left ulna, initial encounter for closed fracture (6) COPD (chronic obstructive pulmonary disease) Assessment/Plan: -Continue home meds Code(s): J44.9 - CHRONIC OBSTRUCTIVE PULMONARY DISEASE, UNSPECIFIED (7) Coronary artery disease Assessment/Plan: -Continue home meds -Cardiology on board Code(s): I25.10 - ATHSCL HEART DISEASE OF [place] CORONARY ARTERY W/O ANG PCTRS Qualifiers: Coronary Disease-Associated Artery/Lesion type: [place] artery [place] vs. transplanted heart: [place] heart Associated angina: without angina Qualified Code(s): I25.10 - Atherosclerotic heart disease of [place] coronary artery without angina pectoris D/C to [facility] when authorization is obtained Condition: Stable - Instructions Disposition: LONGTERM FACILITY - Home Medications Comprehensive Discharge Medication List: Ambulatory Orders Budesonide/Formeterol Fumarate [SYMBICORT 160/4.5mcg -] 2 inh PO BID 01/18/20 Isosorbide Mononitrate 20 mg PO TID MDD 60mg 01/18/20 Metoprolol Succinate [Toprol Xl] 25 mg PO DAILY MDD 25mg 01/18/20 Tramadol HCl [Ultram] 50 mg PO TID 01/18/20 Atorvastatin Ca [Lipitor] 40 mg PO HS tablet 01/19/20 Bisacodyl Suppository [Dulcolax Suppository -] 10 mg RC PRN PRN supp.rect 01/19 Lidocaine 5% Patch [Lidoderm -] 1 patch TP DAILY patch 01/19/20 Polyethylene Glycol 3350 [Miralax 119 gm Btl -] 17 gm PO TID bottle 01/19/20
== END 2020-01-20 11:50 | DRG 313 ==
LOC: JER 15:57 → INTOOBSV 21:58 → JERBED 21:58 → J7W 01-16 14:52 → OBSVTOIN 01-17 18:07
PROVIDERS: ADMIT Internal Medicine; ATTEND Family Medicine
PROC: 2W3DX1Z Immobilization of Left Lower Arm using Splint (ICD-10-PCS; principal; 2020-01-15)
DX: R07.89 Other chest pain (principal); S52.692A Other fracture of lower end of left ulna, initial encounter for closed fracture; N39.0 Urinary tract infection, site not specified; G93.0 Cerebral cysts; I25.10 Atherosclerotic heart disease of native coronary artery without angina pectoris; J44.9 Chronic obstructive pulmonary disease, unspecified; M47.892 Other spondylosis, cervical region; K59.00 Constipation, unspecified; E78.5 Hyperlipidemia, unspecified; F17.210 Nicotine dependence, cigarettes, uncomplicated; M17.12 Unilateral primary osteoarthritis, left knee; R26.89 Other abnormalities of gait and mobility; R33.9 Retention of urine, unspecified; K59.09 Other constipation; I10 Essential (primary) hypertension; W18.39XA Other fall on same level, initial encounter; Y92.89 Other specified places as the place of occurrence of the external cause; Y99.8 Other external cause status; Z95.5 Presence of coronary angioplasty implant and graft
CPT/HCPCS: 36415; 70450-TC; 71045-TC-FY; 72125-TC; 73070-TC-LT-FY; 73090-TC-LT-FY; 73110-TC-LT-FY; 80053; 81003; 82550; 82553; 82962; 83735; 84100; 84484; 85025; 85027; 85610; 85730; 86850; 86900; 86901; 87086; 93005; 93010; 97116-GP; 97161-GP; 99285-25; G0378; J0131

== ENCOUNTER 2020-11-16 14:13 | Inpatient (IN) | payer OTHER, BC ==
[2020-11-16] MEDS ORDERED: SODIUM CHLORIDE 1,769 ML IV ONE (15:14)
[2020-11-16] MEDS ORDERED: ACETAMINOPHEN 1000 MG/100 ML BAG IVPB ONE (15:15)
[2020-11-16] MEDS ORDERED: ACETAMINOPHEN INJECTION 100 ML IVPB ONE (15:22)
[2020-11-16 16:47] LABS: BASO % 0.6 % (0-2.0); EOS % 0.3 % (0-4.5); HEMATOCRIT 34.2 % (32.4-45.2); HEMOGLOBIN 11.2 GM/dL (10.7-15.3); LYMPH % 15.4 % (8-40); MCH 34.3 pg (25.7-33.7); MCHC 32.7 g/dl (32.0-36.0); MEAN CELL VOLUME 105.1 fl (80-96); MEAN PLT VOLUME 9.5 fl (7.5-11.1); MONO % 7.6 % (3.8-10.2); NEUT % 76.1 % (42.8-82.8); PLATELET COUNT 377 K/MM3 (134-434); RBC 3.25 M/mm3 (3.60-5.2); RDW 14.5 % (11.6-15.6); WHITE BLOOD COUNT 10.4 K/mm3 (4.0-10.0)
[2020-11-16 16:58] LABS: INR 0.92 (0.83-1.09); PROTHROMBIN TIME (PATIENT) 11.4 SEC (9.7-13.0)
[2020-11-16 16:59] LABS: EPI CELLS >36 /uL (0-25.1); HYALINE CASTS 23 /uL (0-3.1); PH,URINE 5.5 (5.0-8.0); URINE APPEARANCE TURBID; URINE BACTERIA 1107 /uL (0-1359); URINE BILIRUBIN NEGATIVE (NEGATIVE); URINE COLOR YELLOW; URINE GLUCOSE (UA) NEGATIVE (NEGATIVE); URINE KETONE NEGATIVE (NEGATIVE); URINE LEUK ESTERASE 3+ (NEGATIVE); URINE NITRITE NEGATIVE (NEGATIVE); URINE PROTEIN 1+ (NEGATIVE); URINE UROBILINOGEN 0.2 mg/dL (0.2-1.0); URINE WBC 16743 /uL (0-25.8)
[2020-11-16 17:01] LABS: ACTIVATED PTT 28.1 SECONDS (25.2-36.5)
[2020-11-16 17:08] LABS: CHLORIDE 112 mmol/L (98-107); SODIUM 144 mmol/L (136-145)
[2020-11-16 17:10] LABS: ALBUMIN 3.1 g/dl (3.4-5.0); ANION GAP 6 MMOL/L (8-16); BLOOD UREA NITROGEN 20.8 mg/dL (7-18); CALCIUM 9.5 mg/dL (8.5-10.1); CO2 26 mmol/L (21-32); GLUCOSE,RANDOM 102 mg/dL (74-106)
[2020-11-16 17:14] LABS: SGOT/AST 24 U/L (15-37); SGPT/ALT 22 U/L (13-61)
[2020-11-16 17:15] LABS: BILIRUBIN,TOTAL 0.8 mg/dL (0.2-1); TOT PROT 6.5 g/dl (6.4-8.2)
[2020-11-16 17:17] LABS: ALK PHOS 91 U/L (45-117)
[2020-11-16] MEDS ORDERED: CEFTRIAXONE 1,000 MG in DEXTROSE 5%-WATER - 50 ML IVPB ONE (17:17)
[2020-11-16] MEDS ORDERED: KETAMINE HCL 200 MG/20 ML VIAL IM ONE (17:26)
[2020-11-16] MEDS ORDERED: KETAMINE HCL 200 MG/20 ML VIAL ONE (17:36)
[2020-11-16] MEDS ORDERED: cefTRIAXone SODIUM 1 GM VIAL ONE (17:36)
[2020-11-16 17:41] LABS: URINE RBC 290 /uL (0-23.9); YEAST NEGATIVE (NEGATIVE)
[2020-11-16] MEDS ORDERED: BISACODYL 10 MG SUPP.RECT PR ONE (17:53)
[2020-11-16 18:27] LABS: ANISOCYTOSIS 2+; MACROCYTOSIS 2+; PLATELET ESTIMATE NORMAL; ROULEAU 1+
[2020-11-16] MEDS ORDERED: morphine CARPU-JECT 2 MG/1 ML DISP.SYRIN IVPUSH ONE (18:59)
[2020-11-16] MEDS ORDERED: BISACODYL 10 MG SUPP.RECT ONE (19:12)
[2020-11-16] MEDS ORDERED: HALOPERIDOL LACTATE 5 MG/ML IM ONE (22:08)
[2020-11-16] MEDS: SENNOSIDES 8.6MG TABLET (FP) PO SCH (22:12)
[2020-11-16] MEDS: DOCUSATE SODIUM 100 MG CAPSULE (FP) PO SCH (22:12)
[2020-11-16] MEDS ORDERED: HEPARIN NA (PORCINE) 5,000 UNITS/ML 1ML VIAL ONE (22:21)
[2020-11-16] MEDS ORDERED: HALOPERIDOL LACTATE 5 MG/ML ONE (22:21)
[2020-11-16] MEDS: SODIUM CHLORIDE 1,000 ML IV SCH (22:34)
[2020-11-16] MEDS: HEPARIN NA (PORCINE) 5,000 UNITS/ML 1ML VIAL SQ SCH (22:34)
[2020-11-17] MEDS ORDERED: ACETAMINOPHEN 1000 MG/100 ML BAG IVPB ONE (02:00)
[2020-11-17] MEDS: DOCUSATE SODIUM 100 MG CAPSULE (FP) PO SCH ×3 (06:32→21:32)
[2020-11-17 08:00] LABS: BASO % 0.7 % (0-2.0); EOS % 0.6 % (0-4.5); HEMATOCRIT 29.4 % (32.4-45.2); HEMOGLOBIN 9.9 GM/dL (10.7-15.3); LYMPH % 15.7 % (8-40); MCH 34.9 pg (25.7-33.7); MCHC 33.8 g/dl (32.0-36.0); MEAN CELL VOLUME 103.3 fl (80-96); MEAN PLT VOLUME 8.9 fl (7.5-11.1); MONO % 6.2 % (3.8-10.2); NEUT % 76.8 % (42.8-82.8); PLATELET COUNT 300 K/MM3 (134-434); RBC 2.84 M/mm3 (3.60-5.2); RDW 14.1 % (11.6-15.6); WHITE BLOOD COUNT 7.3 K/mm3 (4.0-10.0)
[2020-11-17 08:14] LABS: ALBUMIN 2.9 g/dl (3.4-5.0); BLOOD UREA NITROGEN 16.2 mg/dL (7-18)
[2020-11-17 08:17] LABS: BILIRUBIN,TOTAL 0.6 mg/dL (0.2-1); CREATININE 0.8 mg/dL (0.55-1.3); PHOSPHOROUS 2.2 mg/dL (2.5-4.9)
[2020-11-17 08:18] LABS: TOT PROT 5.9 g/dl (6.4-8.2)
[2020-11-17] MEDS ORDERED: cefTRIAXone SODIUM 1 GM VIAL ONE (10:50)
[2020-11-17] MEDS ORDERED: DEXTROSE 5%-WATER - 50 ML IVPB ONE (10:51)
[2020-11-17] MEDS: CEFTRIAXONE 1 GM in DEXTROSE 5%-WATER - 50 ML IVPB SCH (10:53)
[2020-11-17] MEDS: LORATADINE 10 MG TABLET PO SCH (10:54)
[2020-11-17] MEDS: ARIPiprazole 5 MG TABLET PO SCH (10:54)
[2020-11-17] MEDS: DULoxetine HCL 20 MG CAPSULE.DR PO SCH (10:54)
[2020-11-17] MEDS: SENNOSIDES 8.6MG TABLET (FP) PO SCH ×2 (10:55→21:33)
[2020-11-17] MEDS: POLYETHYLENE GLYCOL 3350 119 GM BTL PO SCH (10:55)
[2020-11-17] MEDS: HEPARIN NA (PORCINE) 5,000 UNITS/ML 1ML VIAL SQ SCH ×2 (10:55→21:32)
[2020-11-17] MEDS: BENZTROPINE MESYLATE 0.5 MG TABLET (FP) PO SCH (12:55)
[2020-11-17] MEDS: ISOSORBIDE MONONITRATE 20 MG TABLET PO SCH (14:51)
[2020-11-17] MEDS: SODIUM CHLORIDE 1,000 ML IV SCH (19:10)
[2020-11-17] MEDS: MIRTAZAPINE 15 MG TABLET (FP) PO SCH (21:32)
[2020-11-18] MEDS: DOCUSATE SODIUM 100 MG CAPSULE (FP) PO SCH ×3 (05:49→21:38)
[2020-11-18 09:22] LABS: BASO % 1.2 % (0-2.0); HEMATOCRIT 30.5 % (32.4-45.2); HEMOGLOBIN 10.3 GM/dL (10.7-15.3); LYMPH % 21.5 % (8-40); MCH 34.8 pg (25.7-33.7); MCHC 33.6 g/dl (32.0-36.0); MEAN CELL VOLUME 103.4 fl (80-96); MEAN PLT VOLUME 9.2 fl (7.5-11.1); NEUT % 67.3 % (42.8-82.8); PLATELET COUNT 301 K/MM3 (134-434); RBC 2.95 M/mm3 (3.60-5.2); WHITE BLOOD COUNT 7.6 K/mm3 (4.0-10.0)
[2020-11-18 09:34] LABS: ALBUMIN 2.8 g/dl (3.4-5.0); BLOOD UREA NITROGEN 13.2 mg/dL (7-18); CALCIUM 8.8 mg/dL (8.5-10.1)
[2020-11-18 09:37] LABS: CREATININE 0.8 mg/dL (0.55-1.3)
[2020-11-18 09:38] LABS: BILIRUBIN,TOTAL 0.6 mg/dL (0.2-1); TOT PROT 5.7 g/dl (6.4-8.2)
[2020-11-18] MEDS ORDERED: DEXTROSE 5%-WATER - 50 ML IVPB ONE (09:51)
[2020-11-18] MEDS ORDERED: cefTRIAXone SODIUM 1 GM VIAL ONE (09:51)
[2020-11-18] MEDS ORDERED: PT OWN MED DRAWER 7, Y5N ONE ×2 (09:51→14:56)
[2020-11-18] MEDS: CEFTRIAXONE 1 GM in DEXTROSE 5%-WATER - 50 ML IVPB SCH (09:56)
[2020-11-18] MEDS: HEPARIN NA (PORCINE) 5,000 UNITS/ML 1ML VIAL SQ SCH ×2 (09:56→21:39)
[2020-11-18] MEDS: DULoxetine HCL 20 MG CAPSULE.DR PO SCH (09:56)
[2020-11-18] MEDS: CYANOCOBALAMIN (VITAMIN B-12) 1000 MCG/1 ML VIAL IM SCH (09:56)
[2020-11-18] MEDS: ISOSORBIDE MONONITRATE 20 MG TABLET PO SCH ×2 (09:56→14:59)
[2020-11-18] MEDS: SENNOSIDES 8.6MG TABLET (FP) PO SCH ×2 (09:56→21:38)
[2020-11-18] MEDS: LORATADINE 10 MG TABLET PO SCH (09:57)
[2020-11-18] MEDS: BENZTROPINE MESYLATE 0.5 MG TABLET (FP) PO SCH (09:57)
[2020-11-18 11:54] VITALS: BMI 19.2
[2020-11-18] MEDS: METOPROLOL TARTRATE 25 MG TABLET (FP) PO SCH ×2 (12:06→21:38)
[2020-11-18] MEDS: POLYETHYLENE GLYCOL 3350 119 GM BTL PO SCH (12:06)
[2020-11-18] MEDS: ARIPiprazole 5 MG TABLET PO SCH (12:06)
[2020-11-18] MEDS: ACETAMINOPHEN 325 MG TABLET (FP) PO PRN ×2 (14:59→21:39)
[2020-11-18] MEDS: MIRTAZAPINE 15 MG TABLET (FP) PO SCH (21:38)
[2020-11-19] MEDS: ACETAMINOPHEN 325 MG TABLET (FP) PO PRN ×2 (05:32→15:47)
[2020-11-19] MEDS: DOCUSATE SODIUM 100 MG CAPSULE (FP) PO SCH ×3 (05:33→22:34)
[2020-11-19] MEDS ORDERED: DEXTROSE 5%-WATER - 50 ML IVPB ONE (09:18)
[2020-11-19] MEDS ORDERED: cefTRIAXone SODIUM 1 GM VIAL ONE (09:18)
[2020-11-19] MEDS ORDERED: PT OWN MED DRAWER 7, Y5N ONE ×2 (09:18→14:46)
[2020-11-19] MEDS: LORATADINE 10 MG TABLET PO SCH (09:25)
[2020-11-19] MEDS: ARIPiprazole 5 MG TABLET PO SCH (09:26)
[2020-11-19] MEDS: METOPROLOL TARTRATE 25 MG TABLET (FP) PO SCH ×2 (09:27→22:34)
[2020-11-19] MEDS: BENZTROPINE MESYLATE 0.5 MG TABLET (FP) PO SCH (09:27)
[2020-11-19] MEDS: POLYETHYLENE GLYCOL 3350 119 GM BTL PO SCH (09:27)
[2020-11-19] MEDS: ISOSORBIDE MONONITRATE 20 MG TABLET PO SCH ×2 (09:27→14:59)
[2020-11-19] MEDS: SENNOSIDES 8.6MG TABLET (FP) PO SCH ×2 (09:28→22:35)
[2020-11-19] MEDS: CEFTRIAXONE 1 GM in DEXTROSE 5%-WATER - 50 ML IVPB SCH (09:28)
[2020-11-19] MEDS: CYANOCOBALAMIN (VITAMIN B-12) 1000 MCG/1 ML VIAL IM SCH (09:30)
[2020-11-19] MEDS: HEPARIN NA (PORCINE) 5,000 UNITS/ML 1ML VIAL SQ SCH ×2 (09:31→22:35)
[2020-11-19] MEDS: DULoxetine HCL 20 MG CAPSULE.DR PO SCH (09:45)
[2020-11-19] MEDS: MIRTAZAPINE 15 MG TABLET (FP) PO SCH (22:34)
[2020-11-20] MEDS: DOCUSATE SODIUM 100 MG CAPSULE (FP) PO SCH ×3 (06:35→14:07)
[2020-11-20] MEDS ORDERED: cefTRIAXone SODIUM 1 GM VIAL ONE (09:22)
[2020-11-20] MEDS ORDERED: DEXTROSE 5%-WATER - 50 ML IVPB ONE (09:23)
[2020-11-20] MEDS: CEFTRIAXONE 1 GM in DEXTROSE 5%-WATER - 50 ML IVPB SCH (09:31)
[2020-11-20] MEDS: HEPARIN NA (PORCINE) 5,000 UNITS/ML 1ML VIAL SQ SCH (09:33)
[2020-11-20] MEDS: ISOSORBIDE MONONITRATE 20 MG TABLET PO SCH ×2 (09:33→15:47)
[2020-11-20] MEDS: CYANOCOBALAMIN (VITAMIN B-12) 1000 MCG/1 ML VIAL IM SCH (09:34)
[2020-11-20] MEDS: METOPROLOL TARTRATE 25 MG TABLET (FP) PO SCH (09:34)
[2020-11-20] MEDS: LORATADINE 10 MG TABLET PO SCH (09:34)
[2020-11-20] MEDS: DULoxetine HCL 20 MG CAPSULE.DR PO SCH (09:34)
[2020-11-20] MEDS: BENZTROPINE MESYLATE 0.5 MG TABLET (FP) PO SCH (09:35)
[2020-11-20] MEDS: SENNOSIDES 8.6MG TABLET (FP) PO SCH (09:35)
[2020-11-20] MEDS: ARIPiprazole 5 MG TABLET PO SCH (09:36)
[2020-11-20 11:47] LABS: BASO % 0.7 % (0-2.0); HEMATOCRIT 34.5 % (32.4-45.2); HEMOGLOBIN 11.5 GM/dL (10.7-15.3); LYMPH % 19.8 % (8-40); MCH 34.6 pg (25.7-33.7); MCHC 33.5 g/dl (32.0-36.0); MEAN CELL VOLUME 103.4 fl (80-96); MEAN PLT VOLUME 9.6 fl (7.5-11.1); NEUT % 69.5 % (42.8-82.8); PLATELET COUNT 389 K/MM3 (134-434); RBC 3.33 M/mm3 (3.60-5.2); RDW 14.2 % (11.6-15.6); WHITE BLOOD COUNT 7.9 K/mm3 (4.0-10.0)
[2020-11-20] MEDS: POLYETHYLENE GLYCOL 3350 119 GM BTL PO SCH (11:56)
[2020-11-20 12:07] LABS: BLOOD UREA NITROGEN 12.4 mg/dL (7-18); CALCIUM 9.5 mg/dL (8.5-10.1)
[2020-11-20 12:08] LABS: ALBUMIN 3.1 g/dl (3.4-5.0)
[2020-11-20 12:11] LABS: CREATININE 0.9 mg/dL (0.55-1.3)
[2020-11-20 12:13] LABS: BILIRUBIN,TOTAL 0.4 mg/dL (0.2-1); TOT PROT 6.5 g/dl (6.4-8.2)
[2020-11-20 15:26] VITALS: BP 140/74; PULSE 103; TEMP 98.8
[2020-11-20] MEDS ORDERED: PT OWN MED DRAWER 7, Y5N ONE (15:43)
== END 2020-11-20 17:42 | DRG 689 ==
LOC: JER 14:13 → JERBED 15:21 → J8W 23:27
PROVIDERS: ADMIT Hospitalist; ATTEND Family Medicine
DX: N39.0 Urinary tract infection, site not specified (principal); G93.41 Metabolic encephalopathy; R64 Cachexia; E44.0 Moderate protein-calorie malnutrition; I25.10 Atherosclerotic heart disease of native coronary artery without angina pectoris; E78.5 Hyperlipidemia, unspecified; I10 Essential (primary) hypertension; J44.9 Chronic obstructive pulmonary disease, unspecified; K59.00 Constipation, unspecified; R41.0 Disorientation, unspecified; I95.9 Hypotension, unspecified; R00.0 Tachycardia, unspecified; E11.9 Type 2 diabetes mellitus without complications; E53.8 Deficiency of other specified B group vitamins; S32.502D Unspecified fracture of left pubis, subsequent encounter for fracture with routine healing; W18.30XD Fall on same level, unspecified, subsequent encounter; Z95.5 Presence of coronary angioplasty implant and graft; Z90.5 Acquired absence of kidney; Z96.651 Presence of right artificial knee joint
CPT/HCPCS: 36415; 70450-TC; 71045-TC-FY; 72192-TC; 73700-TC-RT; 80053; 81003; 82607; 82962; 83605; 83735; 84100; 84439; 84443; 84484; 85025; 85610; 85730; 87040; 87086; 87804; 93005; 93010; 97116-GP; 97161-GP; 99285-25; C9803; J0131; J1644; U0003